=== PATIENT | female | born 1945 | race Caucasian/White ===

== ENCOUNTER 2021-01-16 00:08 | Day surgery (SDC) | payer MEDICARE, OTHER, SELFPAY ==
[2020-12-03 14:36] VITALS: BMI 30.1
[2021-01-16 08:54] VITALS: BP 104/88; PULSE 83; RESP 18; TEMP 36.3; O2SAT 93; BMI 30.2
[2021-01-16] MEDS: LACTATED RINGERS 1,000 ML 150 ML IV CONT (09:05)
--- NOTE | 2021-01-16 09:15 | WPDANESEPPF ---
Anes - Initial Pre Proc Eval Procedure: Operation Date: 01/16/21 09:30 Proposed Procedures p Screening Colonoscopy - Wiliam Montana MD Date/Time: 01/16/21 09:15 Surgeon: Wiliam Montana MD Pre Op Diagnosis: hx of colon polyps Patient Data Age: 75 Gender: F Height: 1.6 m Weight: 77.3 kg Last Vital Signs Temp 97.3 F L 01/16/21 08:54 Pulse 83 01/16/21 08:54 Resp 18 01/16/21 08:54 BP 104/88 01/16/21 08:54 Pulse Ox 93 01/16/21 08:54 Allergies Allergy/AdvReac Type Severity Reaction Status Date / Time amoxicillin Allergy Unknown Rash Verified 01/16/21 08:53 codeine Allergy Unknown Nausea and Verified 01/16/21 08:53 Vomiting Penicillins Allergy Unknown Rash Verified 01/16/21 08:53 Sulfa (Sulfonamide Allergy Unknown RASH Verified 01/16/21 08:53 Antibiotics) morphine AdvReac Unknown Nausea and Verified 01/16/21 08:53 Vomiting Home Medications Medication Instructions Recorded Confirmed Type amitriptyline 50 mg tablet 50 mg PO ONCE 02/28/20 01/13/21 History atorvastatin 10 mg tablet 10 mg PO DAILY 02/28/20 01/13/21 History cholecalciferol (vitamin D3) 125 125 mcg PO DAILY 02/28/20 01/13/21 History mcg (5,000 unit) capsule mecobalamin (vitamin B12) 1,000 1,000 mcg SUBLINGUAL DAILY 02/28/20 01/13/21 History mcg disintegrating tablet,sublingual pantoprazole 20 mg tablet,delayed 20 mg PO BID 02/28/20 01/13/21 History release ropinirole 0.5 mg tablet 0.5 mg PO BID 02/28/20 01/13/21 History Patient hx anesthesia problems: none Family hx anesthesia problems: none PMFSH Past Medical History Medical History (Updated 10/23/20 @ 14:15 by Wiliam Montana MD) Diverticulosis Dysphagia Family history of colon cancer in mother Family history of malignant neoplasm of colon History of colon polyps Hypercholesteremia Social History Social History Smoking status: Never smoker Substance use: never Living arrangements: with family Gender identity (if verbalized by the patient): Female Spiritual care concerns: No Anes - Eval Final PreProcedure Day of Procedure 01/16/21 09:15 Patient weight: obese Heart: regular rate and rhythm Lungs: clear to auscultation Airway: Mallampati scale class II Neurological: alert and oriented Last oral intake: >/= 8 hours ASA classification: III Emergent: no Anesthetic plan: proceed Anesthesia type and monitoring: general GIVS and standard monitoring Informed Consent: The patient's anesthetic plan and its attendant risks and benefits were discussed with the patient/family/POA. Questions were solicited and answers provided to the satisfaction of the patient/family/POA.
--- NOTE | 2021-01-16 09:25 | PM.HPGS ---
History of Present Illness History of Present Illness Consent: Risks, benefits, and alternatives have been discussed and questions answered. Patient agrees to proceed with procedure. Chief complaint: hx of colon polyps Narrative: Aleja Diaz is a 75 year old female with colon polyps and mother had colon cancer Review of Systems Constitutional: Constitutional: Denies headache(s) and Denies weakness Eyes: Eyes: Denies blurry vision ENT: Reports Normal hearing present, Denies headache(s) and Denies neck pain Cardiovascular: Cardiovascular: Denies chest pain and Denies dyspnea Respiratory: Respiratory: Denies dyspnea Gastrointestinal: Gastrointestinal: Reports no additional gastrointestinal complaints Genitourinary: Genitourinary: Denies dysuria Musculoskeletal: Musculoskeletal: Denies neck pain Integumentary/Breasts: Skin/Breast: Denies dry skin Neurologic: Reports Normal hearing present, Denies headache(s) and Denies weakness Psychiatric: Psychiatric: Denies anxiety Endocrine: Endocrine: Denies change in body appearance Hematologic/Lymphatic: Hematologic/Lymphatic: Denies easy bleeding Allergic/Immunologic: Allergic/Immunologic: Denies urticaria PMFSH Past Medical History Medical History (Updated 10/23/20 @ 14:15 by Wiliam Montana MD) Diverticulosis Dysphagia Family history of colon cancer in mother Family history of malignant neoplasm of colon History of colon polyps Hypercholesteremia Social History Social History Smoking status: Never smoker Substance use: never Living arrangements: with family Gender identity (if verbalized by the patient): Female Spiritual care concerns: No Meds Home Medications and Allergies Home Medications Medication Instructions Recorded Confirmed Type amitriptyline 50 mg tablet 50 mg PO ONCE 02/28/20 01/13/21 History atorvastatin 10 mg tablet 10 mg PO DAILY 02/28/20 01/13/21 History cholecalciferol (vitamin D3) 125 125 mcg PO DAILY 02/28/20 01/13/21 History mcg (5,000 unit) capsule mecobalamin (vitamin B12) 1,000 1,000 mcg SUBLINGUAL DAILY 02/28/20 01/13/21 History mcg disintegrating tablet,sublingual pantoprazole 20 mg tablet,delayed 20 mg PO BID 02/28/20 01/13/21 History release ropinirole 0.5 mg tablet 0.5 mg PO BID 02/28/20 01/13/21 History Allergies Allergy/AdvReac Type Severity Reaction Status Date / Time amoxicillin Allergy Unknown Rash Verified 01/16/21 08:53 codeine Allergy Unknown Nausea and Verified 01/16/21 08:53 Vomiting Penicillins Allergy Unknown Rash Verified 01/16/21 08:53 Sulfa (Sulfonamide Allergy Unknown RASH Verified 01/16/21 08:53 Antibiotics) morphine AdvReac Unknown Nausea and Verified 01/16/21 08:53 Vomiting Vital Signs Vital Signs - 24 hr 01/16/21 08:54 Temperature 97.3 F L Pulse Rate 83 Respiratory Rate 18 Blood Pressure 104/88 Pulse Oximetry 93 Exam Const: General: comfortable and no acute distress HENMT: General nose exam: Normal nares present Eyes: General: appearance normal, both eyes and all related structures Neck: Neck: no JVD Resp: Auscultation: clear to auscultation bilaterally Cardio: Rate: regular rate Rhythm: regular rhythm GI: Inspection: non-distended GI Palp: Yes Soft to palpation Skin: General skin exam: normal color Neuro: General: gait normal Speech: normal speech Extrem: General: normal to inspection Psych: Mental Status: mental status grossly normal Assessment and Plan Assessment and plan (1) Family history of colon cancer in mother: Code(s): Z80.0 - Family history of malignant neoplasm of digestive organs Status: Acute Assessment and Plan: colonoscopy (2) History of colon polyps: Code(s): Z86.010 - Personal history of colonic polyps Status: Acute
[2021-01-16 09:48] VITALS: BP 91/58; PULSE 69; RESP 13; O2SAT 95
[2021-01-16 09:58] VITALS: BP 91/58; PULSE 66; RESP 17; O2SAT 96
[2021-01-16 10:08] VITALS: BP 91/58; PULSE 68; RESP 18; O2SAT 96
== END 2021-01-16 10:35 | disposition home or self-care (01) ==
PROVIDERS: PCP Family Medicine; Visit Provider Internal Medicine Gastroenterology
PROC: 0DJD8ZZ Inspection of Lower Intestinal Tract, Via Natural or Artificial Opening Endoscopic (ICD-10-PCS; CPT 45378; principal; 2021-01-16 09:30)
DX: Z12.11 Encounter for screening for malignant neoplasm of colon (principal); D12.3 Benign neoplasm of transverse colon; Z80.0 Family history of malignant neoplasm of digestive organs; K57.30 Diverticulosis of large intestine without perforation or abscess without bleeding; K64.8 Other hemorrhoids; D17.9 Benign lipomatous neoplasm, unspecified; E78.00 Pure hypercholesterolemia, unspecified
CPT/HCPCS: 45380; 88305; J2001; J2704; J7120

== ENCOUNTER 2023-07-22 13:16 | Emergency (ER) | payer MEDICARE, OTHER, SELFPAY ==
--- NOTE | ~2023-07-22 | XR_ITS ---
EXAMINATION: XR chest 2V DATE: 07/22/2023 13:53 INDICATION: Cough. TECHNIQUE: Frontal and lateral views of the chest were obtained. COMPARISON: Chest 2 views 03/18/2019, chest CT 03/18/2019 FINDINGS: There is mild atelectasis at the lung bases. No pleural effusion or pneumothorax. The heart size is normal. There is an electronic implant in left anterior chest wall. IMPRESSION: 1. Mild atelectasis at the lung bases. Reviewed, dictated and finalized at location A. [facility]
[2023-07-22 13:29] VITALS: BP 106/80; PULSE 83; RESP 16; TEMP 36.9; O2SAT 94
--- NOTE | 2023-07-22 13:56 | ED.URI ---
HPI - URI/Sore Throat General Chief Complaint: Upper Respiratory Infection Stated Complaint: COUGH Source: patient Mode of arrival: ambulatory Limitations: no limitations History of Present Illness HPI Narrative: 78-year-old female presents to [facility] for complaint of a nonproductive cough And postnasal drainage for 2 weeks. Patient endorses that she has treated at home with coricidin and Tessalon Perles with some relief. patient patient denies fever, chest pain, shortness. Patient endorses history TIA, high cholesterol, pain syndrome, anxiety, depression, GERD. Patient endorses allergy to penicillin, amoxicillin, sulfa, codeine, and morphine. patient endorses nausea and vomiting x1 this morning and reports that it is primarily clear phlegm. Patient able to tolerate fluids by mouth. Related Data Home Medications Medication Instructions Recorded Confirmed amitriptyline 50 mg tablet 50 mg PO ONCE 02/28/20 01/13/21 atorvastatin 10 mg tablet 10 mg PO DAILY 02/28/20 01/13/21 cholecalciferol (vitamin D3) 125 125 mcg PO DAILY 02/28/20 01/13/21 mcg (5,000 unit) capsule mecobalamin (vitamin B12) 1,000 1,000 mcg sublingual DAILY 02/28/20 01/13/21 mcg disintegrating tablet,sublingual pantoprazole 20 mg tablet,delayed 20 mg PO BID 02/28/20 01/13/21 release ropinirole 0.5 mg tablet 0.5 mg PO BID 02/28/20 01/13/21 Allergies Allergy/AdvReac Type Severity Reaction Status Date / Time amoxicillin Allergy Unknown Rash Verified 01/16/21 08:53 codeine Allergy Unknown Nausea and Verified 01/16/21 08:53 Vomiting Penicillins Allergy Unknown Rash Verified 01/16/21 08:53 Sulfa (Sulfonamide Allergy Unknown RASH Verified 01/16/21 08:53 Antibiotics) morphine AdvReac Unknown Nausea and Verified 01/16/21 08:53 Vomiting Review of Systems Review of Systems: All systems reviewed & are unremarkable except as noted in HPI and below Constitutional: Constitutional: Reports no additional constitutional complaints, Denies body ache(s), Denies chills and Denies fever(s) Eyes: Eyes: Reports no additional eye complaints ENT: Reports system reviewed and no additional complaints, except as documented and Reports as per HPI Cardiovascular: Cardiovascular: Reports no additional cardiovascular complaints, Denies chest pain and Denies dyspnea Respiratory: Respiratory: Reports cough, Denies excessive phlegm production, Reports pain with cough ( Intermittent) and Denies dyspnea Musculoskeletal: Musculoskeletal: Reports no additional musculoskeletal complaints Neurologic: Reports system reviewed and no additional complaints, except as documented Psychiatric: Psychiatric: Reports no additional psychiatric complaints PMFSH Past Medical History Medical History (Updated 07/22/23 @ 14:56 by Tania Betts APRN) Diverticulosis Dysphagia Family history of colon cancer in mother Family history of malignant neoplasm of colon History of colon polyps Hypercholesteremia Social History Social History Smoking status: Never smoker Substance use: never Living arrangements: with family Gender identity (if verbalized by the patient): Female Spiritual care concerns: No Comments At the time of my signature, I reviewed and agree with the nursing past medical, surgical, social, and family history. There is no relevant family history pertinent to the patient complaint. Exam Const: General: cooperative, healthy appearing, comfortable, no acute distress, alert and well nourished Nutritional Appearance: well nourished Orientation/consciousness: patient oriented x3 Limitations: no limitations HENMT: Head: normal to inspection Ears: external ears normal Face/Nose/Sinus: Normal external nose present, Normal nares present, normal facial exam, No erythema and No edema Face and sinus: normal facial exam, no erythema and no edema Mouth: Yes Normal oral and palatal muc
== END 2023-07-22 15:02 | disposition home or self-care (01) ==
PROVIDERS: Emergency Provider Nurse Practitioner Family; PCP Family Medicine
DX: J98.11 Atelectasis (principal); J06.9 Acute upper respiratory infection, unspecified; J40 Bronchitis, not specified as acute or chronic; E78.00 Pure hypercholesterolemia, unspecified; F32.A Depression, unspecified; K21.9 Gastro-esophageal reflux disease without esophagitis; Z86.73 Personal history of transient ischemic attack (TIA), and cerebral infarction without residual deficits
CPT/HCPCS: 71046; 99213; G0463

== ENCOUNTER 2024-01-03 09:52 | Emergency (ER) | payer MEDICARE, OTHER, SELFPAY ==
[2024-01-03 10:00] VITALS: BP 144/90; PULSE 75; RESP 16; TEMP 36.6; O2SAT 95
--- NOTE | 2024-01-03 10:06 | ED.URI ---
HPI - URI/Sore Throat General Chief Complaint: Upper Respiratory Infection Stated Complaint: Cold Symptoms Time Seen by Provider: 01/03/24 10:06 Source: patient, RN notes reviewed and old records reviewed Mode of arrival: ambulatory Limitations: no limitations History of Present Illness HPI Narrative: 78-[facility] complaint of cough, Sinus congestion, bilateral ear discomfort, intermittent vomiting for 3 days. Patient also endorsing urinary frequency and burning with urination for 2 days. Patient reports taking Coricidin at home with some relief. Patient endorses allergy to amoxicillin, codeine, penicillin, sulfa, morphine. Patient denies chest pain, shortness of breath, abdominal pain, diarrhea, sore throat, headache, dizziness. Patient able to tolerate fluids by mouth. Patient resting uncomfortably in exam room, appears fatigued and acutely ill. Respirations even and nonlabored. Patient able to speak in full sentences without difficulty. Patient in no acute distress. Related Data Home Medications Medication Instructions Recorded Confirmed amitriptyline 50 mg tablet 50 mg PO ONCE 02/28/20 01/03/24 atorvastatin 10 mg tablet 10 mg PO DAILY 02/28/20 01/03/24 cholecalciferol (vitamin D3) 125 125 mcg PO DAILY 02/28/20 01/03/24 mcg (5,000 unit) capsule mecobalamin (vitamin B12) 1,000 1,000 mcg sublingual DAILY 02/28/20 01/03/24 mcg disintegrating tablet,sublingual pantoprazole 20 mg tablet,delayed 20 mg PO BID 02/28/20 01/03/24 release ropinirole 0.5 mg tablet 0.5 mg PO BID 02/28/20 01/03/24 Allergies Allergy/AdvReac Type Severity Reaction Status Date / Time amoxicillin Allergy Unknown Rash Verified 01/03/24 10:09 codeine Allergy Unknown Nausea and Verified 01/03/24 10:09 Vomiting Penicillins Allergy Unknown Rash Verified 01/03/24 10:09 Sulfa (Sulfonamide Allergy Unknown RASH Verified 01/03/24 10:09 Antibiotics) morphine AdvReac Unknown Nausea and Verified 01/03/24 10:09 Vomiting Review of Systems Review of Systems: All systems reviewed & are unremarkable except as noted in HPI and below Constitutional: Constitutional: Reports as per HPI and Reports fatigue Eyes: Eyes: Reports no additional eye complaints ENT: Reports as per HPI, Reports otalgia ( bilateral pressure) and Reports nasal congestion Cardiovascular: Cardiovascular: Reports no additional cardiovascular complaints, Denies chest pain and Denies dyspnea Respiratory: Respiratory: Reports no additional respiratory complaints, Reports cough and Denies dyspnea Gastrointestinal: Gastrointestinal: Reports as per HPI, Denies abdominal pain, Denies diarrhea, Denies nausea and Denies vomiting Genitourinary: Genitourinary: Reports as per HPI, Denies hematuria, Reports nocturia and Reports dysuria Musculoskeletal: Musculoskeletal: Reports no additional musculoskeletal complaints Neurologic: Reports system reviewed and no additional complaints, except as documented Psychiatric: Psychiatric: Reports no additional psychiatric complaints [facility] Past Medical History Medical History Diverticulosis Dysphagia Family history of colon cancer in mother Family history of malignant neoplasm of colon History of colon polyps Hypercholesteremia Social History Social History Smoking status: Never smoker Substance use: never Living arrangements: with family Gender identity (if verbalized by the patient): Female Spiritual care concerns: No Comments At the time of my signature, I reviewed and agree with the nursing past medical, surgical, social, and family history. There is no relevant family history pertinent to the patient complaint. Exam Const: General: cooperative, no acute distress, well developed, alert, ill appearing acutely, tired appearing, uncomfortable, well groomed and well devon
--- NOTE | 2024-01-03 10:28 | PC.NURSE ---
1027- provider in telling her results of poc tests, and giving her discharge instructions, and pt also mentions that now she would like to be tested for UTI, since she is having some burning with urination x 1 day. pt given specimen cup and instructions for giving a specimen.
[2024-01-03 10:30] LABS: EDINFLUASCREEN Negative; EDINFLUBSCREEN Negative; EDSTREPNEGPOS1 Presumptive Negative
[2024-01-03 10:40] LABS: EDUAAPPEAR Cloudy; EDUABILI Negative; EDUABLOOD Trace; EDUACOLOR1 Yellow; EDUAGLUCOSE Negative; EDUAKETONE Negative; EDUALEUKO 2+; EDUANITRATE Positive; EDUAPH 5.5; EDUAPROTEIN Negative; EDUASPGRAVITY 1.015; EDUAUROBILI 0.2
== END 2024-01-03 10:48 | disposition home or self-care (01) ==
PROVIDERS: Emergency Provider Nurse Practitioner Family
DX: U07.1 COVID-19 (principal); N39.0 Urinary tract infection, site not specified; E78.00 Pure hypercholesterolemia, unspecified
CPT/HCPCS: 81003; 87077; 87081; 87086; 87088; 87186; 87426; 87804; 87880; 99213; G0463

== ENCOUNTER 2024-02-28 14:31 | Emergency (ER) | payer MEDICARE, OTHER, SELFPAY ==
[2024-02-28 14:43] VITALS: BP 144/75; PULSE 83; RESP 16; TEMP 36.4; O2SAT 97
--- NOTE | 2024-02-28 15:00 | ED.SKABFB ---
HPI - Skin/Abscess/Foreign Bdy General Chief complaint: Skin/Abscess/Foreign Body Stated complaint: rash on back,lt eye irritation Time Seen by Provider: 02/28/24 14:58 Source: patient, family, RN notes reviewed and old records reviewed Mode of arrival: ambulatory Limitations: no limitations History of Present Illness HPI narrative: 78 year old female who presents to [facility] with significant other with complaints of red raised rash to lower right side of lower back with some pustules noted for 2 day duration. Patient states area burning and itching concerned for possible shingles which she states she has had in past. lesions do not cross midline. Patient also reports 3 day duration of left eye redness, itching, and watery with some mucoid drainage noted in mornings. Patient has minimal swelling to eyelid no lesions or redness around left eye. Patient denies any acute pain to her left eye or any changes in vision. Patient reports that she had COVID one month ago, denies any history of kidney disease. MD complaint: rash and other (left eye irritation and mucoid drainage) Onset (ago): day(s) (2 days rash 3 days eye irritation) Location: back (right lower back) Severity: moderate Quality: burning (rash, itching to left eye watering) Treatments prior to arrival: none Related Data Home Medications Medication Instructions Recorded Confirmed amitriptyline 50 mg tablet 50 mg PO ONCE 02/28/20 01/03/24 atorvastatin 10 mg tablet 10 mg PO DAILY 02/28/20 01/03/24 cholecalciferol (vitamin D3) 125 125 mcg PO DAILY 02/28/20 01/03/24 mcg (5,000 unit) capsule mecobalamin (vitamin B12) 1,000 1,000 mcg sublingual DAILY 02/28/20 01/03/24 mcg disintegrating tablet,sublingual pantoprazole 20 mg tablet,delayed 20 mg PO BID 02/28/20 01/03/24 release ropinirole 0.5 mg tablet 0.5 mg PO BID 02/28/20 01/03/24 Allergies Allergy/AdvReac Type Severity Reaction Status Date / Time amoxicillin Allergy Unknown Rash Verified 01/03/24 10:09 codeine Allergy Unknown Nausea and Verified 01/03/24 10:09 Vomiting Penicillins Allergy Unknown Rash Verified 01/03/24 10:09 Sulfa (Sulfonamide Allergy Unknown RASH Verified 01/03/24 10:09 Antibiotics) morphine AdvReac Unknown Nausea and Verified 01/03/24 10:09 Vomiting Review of Systems Review of Systems: CONSTITUTIONAL: Denies fever, chills, or sweats. EYES: Denies visual changes. Reports redness,, irritation, discharge and increased watering to her left eye and itching ENT: Denies rhinorrhea, congestion, sore throat, or otalgia. CARDIOVASCULAR: Denies chest pain, palpitations, or edema. RESPIRATORY: Denies cough or dyspnea. SKIN: Reports red raised rash to lower right back with pustule formation that is burning NEUROLOGIC: Denies headache PMFSH Past Medical History Medical History CVA (cerebral vascular accident) 2019 no residual Diverticulosis Dysphagia Esophageal dilatation 2019 Family history of colon cancer in mother Family history of malignant neoplasm of colon History of colon polyps Hypercholesteremia Hypertension Surgical History Surgical History Hx of appendectomy Social History Social History Smoking status: Never smoker Substance use: never Living arrangements: with family Gender identity (if verbalized by the patient): Female Spiritual care concerns: No Comments At time of signature, agree with nursing past medical, surgical, social and family history. There is no relevant family history pertinent to the presenting complaint Exam Narrative: GENERAL: Well-appearing, well-nourished, and in no acute distress. HEAD: Normocephalic, atraumatic. EYES: PERRLA and EOMI. Upper eye lid left eye mild swelling and lower eyelid unremarkable. No periorbital cellulitis noted. Sclera and conj
== END 2024-02-28 15:16 | disposition home or self-care (01) ==
PROVIDERS: Emergency Provider Registered Nurse; PCP Family Medicine
DX: B02.9 Zoster without complications (principal); H10.9 Unspecified conjunctivitis; E78.00 Pure hypercholesterolemia, unspecified; I10 Essential (primary) hypertension; Z86.73 Personal history of transient ischemic attack (TIA), and cerebral infarction without residual deficits; Z86.16 Personal history of COVID-19
CPT/HCPCS: 99213; G0463

== ENCOUNTER 2024-03-20 12:14 | Outpatient (CLI) | payer MEDICARE, OTHER, SELFPAY ==
--- NOTE | ~2024-03-20 | US_ITS ---
EXAMINATION: US carotid duplex BI DATE: 03/20/2024 13:14 INDICATION: Carotid atherosclerosis and stenosis TECHNIQUE: Grayscale, color Doppler, and pulsed Doppler images of the cervical carotid arteries were obtained. The degree of vessel stenosis is placed in one of the following categories: normal, <50%, 5 0-69%, >=70% but less than near-occlusion, near-occlusion, or total occlusion. Note that percent sten osis relative to normal distal artery lumen diameter is indirectly measured from velocity measurement s as described by Jerad, et al. Radiology 2003; 229:340-346. COMPARISON: 03/18/2019 FINDINGS: RIGHT: The right common carotid artery (CCA) peak systolic velocity (PSV) is 87 cm/s. The right internal car otid artery (ICA) PSV is 60 cm/s. The right ICA end-diastolic velocity (EDV) is 18 cm/s. The right IC A/CCA PSV ratio is 0.7. Grayscale and color Doppler images yield an estimate of <50% diameter reducti on from plaque in the ICA. The external carotid artery (ECA) PSV is 73 cm/s. There is antegrade flow in the right vertebral artery. LEFT: The left CCA PSV is 83 cm/s. The left ICA PSV is 82 cm/s. The left ICA EDV is 22 cm/s. The left ICA/C CA PSV ratio is 1.0. Grayscale and color Doppler images yield an estimate of <50% diameter reduction from plaque in the ICA. The ECA PSV is 82 cm/s. There is antegrade flow in the left vertebral artery. IMPRESSION: 1. <50% stenosis in the right internal carotid artery. 2. <50% stenosis in the left internal carotid artery. Reviewed, dictated and finalized at location A.
--- NOTE | ~2024-03-20 | US_ITS ---
EXAMINATION: US soft tissue head and neck DATE: 03/20/2024 13:13 INDICATION: Localized palpable lump at the right neck TECHNIQUE: Multiple grayscale and Doppler ultrasound images of the region of concern at the and supra clavicular right neck were obtained. COMPARISON: None FINDINGS: The palpable abnormality of concern corresponds to the relatively superficial bifurcation of the inno minate artery into the right subclavian artery and tortuous right common carotid artery. No other abn ormal masses, pathologically enlarged lymph nodes or fluid collections identified. Visualized portion of the right internal jugular vein and right lobe of the thyroid are unremarkable. IMPRESSION: 1. Palpable abnormality of concern corresponds to the relatively superficial bifurcation of the innom inate artery to the right subclavian artery and tortuous right common carotid artery. Reviewed, dictated and finalized at location A. IMPRESSION: 1. Palpable abnormality of concern corresponds to the relatively superficial bi furcation of the innominate artery to the right subclavian artery and tortuous right common carotid artery.
--- NOTE | 2024-03-20 12:21 | ECHO_ITS ---
Patient Info Name: Aleja Diaz Age: 78 years : 1945 Gender: Female Ht: 64 in Wt: 188 lbs BSA: 1.99 m2 HR: 76 bpm BP: 142 / 85 mmHg Heart Rhythm: Sinus Rhythm Technical Quality: Fair Exam Date: 03/20/2024 1:11 PM Exam Location: Echo Lab Patient Status: Outpatient Admit Date: 03/20/2024 Staff Ordering Physician: Sarabjit Ferrera DO Configuration Management Manager: Hali Urrutia RDCS Attending Provider: Sarabjit Ferrera DO Referring Physician: Iban PRESLEY; Exam Type: CA echo doppler color flow Study Info Indications R01.1 - Cardiac murmur, unspecified Complete two-dimensional, color flow and Doppler transthoracic echocardiogram is performed. Summary 1. Complete two-dimensional, color flow and Doppler transthoracic echocardiogram is performed. 2. Left ventricular chamber dimension is normal. 3. Left ventricular systolic function is normal, estimated at 60-65%. 4. The left ventricular diastolic function is grade I diastolic dysfunction. 5. E/e' 10 is mildly elevated. 6. There is mild aortic valve sclerosis. 7. There is trace aortic valve regurgitation. 8. No pulmonary hypertension, estimated pulmonary arterial systolic pressure is 29 mmHg. 9. Small atheroma in anterior aortic root. Left Ventricle E/e' 10 is mildly elevated. Left ventricular chamber dimension is normal. Left ventricular systolic function is normal, estimated at 60-65%. The left ventricular diastolic function is grade I diastolic dysfunction. Right Ventricle Right ventricular systolic function is normal and with normal TAPSE 2.0 cm. Right ventricular chamber dimension is normal. Left Atria Left atrial chamber dimension is normal. Right Atria Right atrial chamber dimension is normal. Aortic Valve The aortic valve is trileaflet. There is mild aortic valve sclerosis. There is no aortic valve stenosis. There is trace aortic valve regurgitation. Pulmonic Valve There is no pulmonic regurgitation. Mitral Valve There is no mitral valve stenosis. There is no mitral valve regurgitation. Tricuspid Valve There is no tricuspid valve regurgitation. No pulmonary hypertension, estimated pulmonary arterial systolic pressure is 29 mmHg. Pericardium/Pleural There is no pericardial effusion. Inferior Vena Cava Normal inferior vena cava with >50% collapse upon inspiration consistent with normal right atrial pressure, 5 mmHg. Aorta Small atheroma in anterior aortic root. The aortic root size at the sinus of Valsalva is normal. Left Ventricular Outflow Tract Name Value Normal LVOT 2D LVOT Diameter 2.0 cm LVOT Doppler LVOT Peak Gradient 5 mmHg LVOT Mean Gradient 3 mmHg LVOT VTI 26 cm LVOT VTI/AV VTI Ratio 0.9 LVOT Stroke Volume 81 ml Pulmonic Valve Name Value Normal PV Doppler PV Peak Gradient 3 mmHg Mitral Valve Name Value Normal MV Doppler MV Decel Fallon 348 cm/s2 MV PHT 60 ms MV Area (PHT) 3.7 cm2 4.0-5.0 MV Diastolic Function MV E Peak Velocity 72 cm/s MV A Peak Velocity 107 cm/s MV E/A 0.7 MV Decel Time 207 ms MV Annular TDI MV E/e' (Septal) 11.0 <=8.0 MV E/e' (Lateral) 10.2 <=8.0 MV E/e' (Average) 10.6 Tricuspid Valve Name Value Normal TV Regurgitation Doppler TR Peak Velocity 247 cm/s TR Peak Gradient 24 mmHg Estimated PAP/RSVP RA Pressure 5 mmHg <=5 PA Systolic Pressure 29 mmHg <36 RV Systolic Pressure 29 mmHg <36 Aorta Name Value Normal Ascending Aorta Ao Root Diameter (MM) 3.1 cm Ao Root Diam Index (MM) 1.6 cm/m2 Aortic Valve Name Value Normal AV Doppler AV Peak Velocity 187 cm/s AV Peak Gradient 14 mmHg AV Mean Gradient 6 mmHg AV VTI 30 cm AV Area (Cont Eq VTI) 2.7 cm2 >=3.0 AV Area (Cont Eq Tony) 1.9 cm2 AV Regurgitation 2D LVOT Area 3.1 cm2 AV Regurgitation Doppler AR Decel Time 1,638 ms AR Decel Fallon 175 cm/s2 AR PHT 475 ms Ventricles Name Value Normal LV Dimensions 2D/MM IVS Diastolic Thickness (2D) 1.1 cm 0.6-1.0 LVID Diastole (2D) 4.2 cm 3.8-5.2 LVIW Diastolic Thickness (2D) 1.1 cm 0.6-0.9 LVID Systole (2D) 2.5 cm 2.2-3.5 LVOT Diameter 2.0 cm LV Mass (2D Cubed) 154.62 g 67.00-162.00 LV Mass Index (2D Cubed) 78 g/m2 43-95 Relative Wall Thickness (2D) 0.54 LV Fractional Shortening/Ejection Fraction 2D/MM LV Fractional Shortening (2D) 40 % 27-45 LV EF (2D Teicholz) 71 % 54-74 LV Diastolic Volume (4C MOD) 46 ml LV EF (4C MOD) 60 % LV Diastolic Volume (2C MOD) 28 ml LV EF (2C MOD) 68 % LV Diastolic Volume (BP MOD) 39 ml 46-106 LV Diastolic Volume Index (BP MOD) 19 ml/m2 29-61 LV Systolic Volume (BP MOD) 13 ml 14-42 LV Systolic Volume Index (BP MOD) 7 ml/m2 8-24 LV EF (BP MOD) 65 % 54-74 LV Diastolic Length (4C) 7.7 cm LV Systolic Length (4C) 6.1 cm LV Stroke Volume (4C MOD) 28 ml Atria Name Value Normal LA Dimensions LA Dimension (MM) 3.6 cm 2.7-3.8 LA Volume (4C A-L) 37 ml LA Volume (BP A-L) 35 ml RA Dimensions RA Area (4C) 10.8 cm2 <=18.0 Report Signatures
== END 2024-03-20 12:15 | disposition home or self-care (01) ==
LOC: ANHIMG 12:15
PROVIDERS: PCP Family Medicine; Visit Provider Internal Medicine Cardiovascular Disease
DX: I65.23 Occlusion and stenosis of bilateral carotid arteries (principal); R01.1 Cardiac murmur, unspecified; I35.8 Other nonrheumatic aortic valve disorders
CPT/HCPCS: 76536; 93306; 93880

== ENCOUNTER 2024-11-07 09:20 | Emergency (ER) | payer MEDICARE, OTHER, SELFPAY ==
[2024-11-07] VITALS (14 sets, daily range): BP systolic 118–150; BP diastolic 66–92; PULSE 94–107; RESP 16–26; TEMP 38.5–39.2; O2SAT 92–100
--- NOTE | ~2024-11-07 | XR_ITS ---
XR chest 2V Ordering provider: Davon Ribera MD History: 79 years Female with . dizzy, pt STATES FEELING COLD x1HR . Comparison: July 22, 2023 FINDINGS: MEDIASTINUM: The cardiac silhouette is not enlarged. Congestive basil. Device projected over the heart . LUNGS: No effusions or pneumothorax. Bilateral interstitial thickening suggestive of pneumonitis vers us pulmonary edema. OTHER: No free air under the diaphragm. Degenerative changes of the spine with levoscoliosis. IMPRESSION: Bilateral interstitial thickening which may indicate pulmonary edema versus pneumonitis. Clinical cor relation advised. Reviewed, dictated and finalized at location A. IMPRESSION: Bilateral interstitial thickening which may indicate pulmonary edema versus pne umonitis. Clinical correlation advised.
--- OUTSIDE RECORDS SUMMARY | 2024-11-07 10:07 | XMS_ITS | Encounter Summary ---
Author Organization [facility] Healthcare Address [address] [place] [address] Care Team Providers Care Double Bass Player Name Role Phone No, Physician Primary Care Provider [phone] Juma Miranda MD Primary Care Provider [phone] Encounter Details Date Type Department Care Team (Late st Contact Info) Description 03/20/2024 Orders Only [facility] Medical [facility] [address] [place] [id number] Scanning, Provider Social History Tobacco Use Types Packs/Day Years Used Date Smoking Tobacco: Never Comments Unknown Sex and Gender Information Value Date Recorded Sex Assigned at Not on file Legal Sex Female 7:50 AM CDT Gender Identity Not on file Sexual Orientation Not on file documented as of this encounter Plan of Treatment Not on file documented as of this encounter Procedures Procedure Name Priority Date/Time Associated Diagnosis Comments SCAN - RADIOLOGY/IMAGING 03/20/2024 documented in this encounter Results * SCAN - RADIOLOGY/IMAGING (03/20/2024) Anatomical Region Laterality Modality Other us Provider Scanning Final Result documented in this encounter Visit Diagnoses Not on filedocumented in this encounter Care Teams Double Bass Player Relationship Specialty Start Date End Date No, Physician PCP - General 03/18/19 09/10/24 [place] [address] [place] [address] PCP - General Family Medicine 09/11/24 documented as of this encounter
--- OUTSIDE RECORDS SUMMARY | 2024-11-07 10:07 | XMS_ITS | Referral Summary ---
Author Organization [facility] [address] Address [address] [place] [address] Care Team Providers Care Phosphatic Fertilizer Supervisor Name Role Phone Juma Miranda MD Primary Care Provider [phone] Encounters Date Type Department Care Team Description 09/11/2024 12:30 PM CDT Office Visit [facility] [address] [address] Fabian Sebastian NP Blepharitis of left upper eyelid, unspecified type (Primary Dx); Daytime sleepiness from Last 3 Months Allergies Active Allergy Reactions Criticality Noted Date Comments Codeine Dizziness Low 06/16/2016 Doxycycline Nausea only Low 07/30/2022 Penicillins Rash Medium 06/16/2016 Pravastatin Muscle pain Medium 06/16/2016 Rosuvastatin Muscle pain Medium 06/16/2016 Sertraline Other (See comments) Low 02/21/2019 Body cramping Sulfa (Sulfonamide Antibiotics) Rash,Shortness of breath High 06/16/[address] (PROTONIX) 40 mg EC tablet Take 1 tablet (40 mg total) by mouth daily Active rOPINIRole (REQUIP) 0.5 mg tablet 01/01/2021 Active atorvastatin (LIPITOR) 10 mg tablet 12/03/2020 Active amitriptyline (ELAVIL) 50 mg tablet 02/14/[address] (PROTONIX) 20 mg EC tablet Take 1 tablet (20 mg total) by mouth 2 (two) times a day 03/31/2022 Active benzonatate (TESSALON) 100 mg capsuleIndicatio ns:Cough Take 1 capsule (100 mg total) by mouth 3 (three) times a day as needed for cough 42 capsule 01/08/2024 Active nitrofurantoin monohydrate (MACROBID) 100 mg capsule 01/03/2024 Active amitriptyline (ELAVIL) 75 mg tablet 01/06/2024 Active predniSONE (DELTASONE) 20 mg tablet 01/03/2024 Active Active Problems No known active problems Social History Tobacco Use Types Packs/Day Years Used Date Smoking Tobacco: Never Tobacco Cessation:Counseling Given: Not Answered Comments Unknown Sex and Gender Information Value Date Recorded Sex Assigned at Not on file Legal Sex Female 7:50 AM CDT Gender Identity Not on file Sexual Orientation Not on file Last Filed Vital Signs Vital Sign Reading Time Taken Comments Blood Pressure 130/78 09/11/2024 12:16 PM CDT Pulse 84 09/11/2024 12:16 PM CDT Temperature 36.5 C (97.7 F) 09/11/2024 12:16 PM CDT Respiratory Rate 20 09/11/2024 12:16 PM CDT Oxygen Saturation 94% 09/11/2024 12:16 PM CDT Inhaled Oxygen Concentration - - Weight 84.4 kg (186 lb) 09/11/2024 12:16 PM CDT Height 161.3 cm (5' 3.5) 01/12/2024 4:22 PM CDT Body Mass Index 32.43 01/12/2024 4:22 PM CDT Plan of Treatment Not on file Insurance MEDICARE [facility] Address: [id number] [place] [address] [facility] [place] [employer] [place] [employer] Care Teams Phosphatic Fertilizer Supervisor Relationship Specialty [place] [id number] [address] PCP - General Family Medicine 09/11/24
--- OUTSIDE RECORDS SUMMARY | 2024-11-07 10:07 | XMS_ITS | Clinical Summary ---
Author Organization [facility] Address [address] [place] [address] Care Team Providers Care Shredding Specialist Name Role Phone Juma Miranda MD Primary Care Provider [phone] Juma Schneider MD Unavailable [phone] Allergies Active Allergy Reactions Criticality Noted Date Comments Ampicillin Rash Low 06/16/2016 Codeine Dizziness 06/16/2016 Doxycycline Nausea Only 07/30/2022 Penicillins Rash Low 06/16/2016 Pravastatin Myalgias 06/16/2016 Rosuvastatin Myalgias 06/16/2016 Sertraline Other (see comment) 02/21/2019 Body cramping Sulfa Antibiotics Shortness of Breath,Rash High 05/24 Medications vitamin D3 5000 UNITS capsule Take 1 tablet by mouth daily. 10/10/2014 Active aspirin EC (ECOTRIN) 81 MG tablet Take 1 tablet (81 mg total) by mouth daily. Active ropinirole 0.25 MG tabletIndicatio ns:take 4 tablets at bedtime if needed Take 1 tablet (0.25 mg total) by mouth nightly. Indications: take 4 tablets at bedtime if needed Active amitriptyline 50 MG tablet Take 1 tablet (50 mg total) by mouth nightly at bedtime. Active pantoprazole EC 40 MG tablet Take 1 tablet (40 mg total) by mouth daily. Active atorvastatin 10 MG tablet Take 1 tablet (10 mg total) by mouth nightly at bedtime. Active vitamin B-12 100 MCG tablet Take 0.5 tablets (50 mcg total) by mouth daily. Active Active Problems Problem Noted Date Diagnosed Date Encounter for loop recorder at end of battery li fe 07/22/2022 Status post placement of implantable loop record er 07/28/2019 Overview (07/28/2019): [facility] confirm ilr -- 07-13-2019 Cryptogenic stroke ([facility]) 04/06/2019 Bilateral carotid artery stenosis 07/20/2018 Other chest pain 01/19/2018 Nonrheumatic aortic valve insufficiency 06/24/19 17 Abnormal laboratory test 06/23/2016 Heart murmur Pulsatile neck mass HLD (hyperlipidemia) Aneurysm of carotid artery IBS (irritable bowel syndrome) Family History Medical History Relation Comments Heart Attack Father NM Father Heart Attack Paternal Grandfather Relation Status Comments Father Maternal Grandfather Maternal Grandmother Mother Paternal Grandfather Paternal Grandmother Sister Social History Tobacco Use Types Packs/Day Years Used Date Smoking Tobacco: Never Smokeless Tobacco: Never Alcohol Use Standard Drinks/Week Comments No 0 (1 standard drink = 0.6 oz pur e alcohol) Comments Unknown Sex and Gender Information Value Date Recorded Sex Assigned at Not on file Legal Sex Female 8:44 PM CDT Gender Identity Not on file Sexual Orientation Not on file Occupation Industry Job Start Date Job End Date retired Not on file Not on file Not on file Last Filed Vital Signs Vital Sign Reading Time Taken Comments Blood Pressure 143/86 07/30/2022 1:00 PM GENETICS NURSE Pulse 76 07/30/2022 1:00 PM GENETICS NURSE Temperature 36 C (96.8 F) 07/30/2022 1:00 PM GENETICS NURSE Respiratory Rate 16 07/30/2022 1:00 PM GENETICS NURSE Oxygen Saturation 97% 07/30/2022 1:00 PM GENETICS NURSE Inhaled Oxygen Concentration - - Weight 84.1 kg (185 lb 6.5 oz) 07/30/2022 1:00 P M GENETICS NURSE Height 161.3 cm (5' 3.5) 07/30/2022 1:00 PM GENETICS NURSE Body Mass Index 32.32 07/30/2022 1:00 PM GENETICS NURSE Plan of Treatment Health Maintenance Due Date Last Done Comments Hepatitis C 1963 DTaP, Tdap and Td Vaccines ( 1 - Tdap) 1964 Zoster Vaccines (1 of 2) 1995 Annual Medicare Wellness Visit 2010 Dexa Scan (General) 2010 Pneumococcal Vaccine: 50+ Ye ars (2 of 2 - PPSV23) 02/15/2018 12/21/2017 RSV Immunization or 60+ Years (1 - 1-dose 75+ series) 2020 COVID-19 Vaccine (1 - 2023-2 5 season) 2024 Meningococcal B Vaccine Aged Out No l onger eligible based on patient's age to complete this topic Meningococcal Vaccine Aged Out No danisha juan eligible based on patient's age to complete this topic RSV Immunizations Under 20 Months Aged Out No longer eligible based on patient's age to complete this topic Medical Devices Implanted Type Area Heavy Duty Custodian Device Identifier Shelf Expiration Date Model / Serial / Lot [employer] Loop Recorder 07/13/2019 Implanted:07/13 by Juma Schneider MD (Quantity not on file) [employer] [facility] [employer] 07/13/2020 [id number] / [id number] / Insurance MEDICARE [employer] Advance Directives Documents on File Type Date Recorded Patient Certified Pest Control Technician Expl anation Advance Directives and Living Will 08/03/2022 3:25 PM 04/29/2020 [place] Advance Directives and Living Will 08/03/2022 2:39 PM POA FOR HEALTH CARE * Full Code (Latest Code Status on File) Date Activated Date Inactivated Comments 07/13/2019 1:03 PM 07/13/2019 3:46 PM Care Teams Shredding Specialist Relationship Specialty Start Date End Date Juma Miranda MD PCP - General FAMILY PRACTICE 07/25/18 Juma Schneider MD [address] [place] [address] EP Press Pipe Inspector CLINICAL CARDIAC ELECTROPHYSIOLOGY 03/23/19
--- OUTSIDE RECORDS SUMMARY | 2024-11-07 10:07 | XMS_ITS | Clinical Summary ---
Author Organization [facility] [address] Address [address] [place] [address] Care Team Providers Care Radiology Director Name Role Phone Juma Miranda MD Primary Care Provider [phone] Allergies Active Allergy Reactions Criticality Noted Date [...] Active Active Problems No known active problems Encounters Date Type Department Care Team Description 09/11/2024 12:30 PM CDT Office Visit [facility] Medical [facility] Care at [address] [address] Fabian Sebastian NP Blepharitis of left upper eyelid, unspecified type (Primary Dx); Daytime sleepiness from Last 3 Months Surgical History Surgery Date Site/Laterality Comments TUBAL LIGATION CARPAL TUNNEL RELEASE bilateral Medical History Medical History Date Comments Hyperlipidemia GERD (gastroesophageal reflux disease) Family History Medical History Relation Name Comments Heart attack Father Colon cancer Mother Relation Name Status Comments Father Mother Social History Tobacco Use Types Packs/Day Years Used Date Smoking Tobacco: Never Tobacco Cessation:Counseling Given: Not Answered Comments Unknown Sex and Gender Information Value Date Recorded Sex Assigned at Not on file Legal Sex Female 7:50 AM CDT Gender Identity Not on file Sexual Orientation Not on file Obstetrics History Last Filed Vital Signs Vital Sign Reading [...] 01/12/2024 4:22 PM CDT Plan of Treatment Health Maintenance Due Date Last Done Comments Depression Screening 1945 Fall Risk Assessment 1945 Hepatitis C Screening 1945 Osteoporosis Screening-Bone Density Scan 1945 DTaP/Tdap/Td Vaccine (1 - Tdap) 1956 Hepatitis B Screening 1963 Zoster Vaccine (1 of 2) 1995 Well Visit 65+ 2010 Covid-19 Vaccine ( season) 01/22/20241, 06/23/2020 Influenza Vaccine (Season Ended) 2025 01/30/2020, 02/01/2019, 03/20/2018 Pneumococcal vaccine 65+ Completed 01/04/2019, 05/2017 Insurance MEDICARE [employer] Care Teams Radiology Director Relationship Specialty [place] [address] [place] [address] PCP - General Family Medicine 09/11/24
--- OUTSIDE RECORDS SUMMARY | 2024-11-07 10:08 | XMS_ITS | Patient Health Record ---
Author Organization [facility] Address [address] [place] [address] Care Team Providers Care Fashion Journalist Name Role Phone LATA SHOOK Unavailable [phone] Reason For Referral No Information Plan Of Treatment No Information
--- OUTSIDE RECORDS SUMMARY | 2024-11-07 10:08 | XMS_ITS | Encounter Summary ---
Author Organization [facility] Address [address] [place] [address] Care Team Providers Care Tester Wafer Substrate Name Role Phone Maribell Adler MD Unavailable Juma Miranda MD Primary Care Provider [phone] Juma Schneider MD Unavailable [phone] Encounter Details Date Type Department Care Team (Late st Contact Info) Description 07/27/2022 Hospital Orders Only [facility] Analysis Consultant Pre/Post [address] [place], [place] [id number] Juma Schneider MD [address] [place] [id number] Social History Tobacco Use Types Packs/Day Years [...] file Not on file Not on file COVID-19 Exposure Response Date Recorded In the last 10 days, have yo u been in contact with someone who was confirmed or suspected to have Coronavirus/COVID-19? No / Unsure 07/30/2022 10:02 AM BLANKET CUTTING MACHINE OPERATOR documented as of this encounter Functional Status * Calculated C-SSRS Risk Score (Lifetime/Recent) Answer Date of Assessment Author Status No Risk Indicated 07/30/2022 1:24 PM BLANKET CUTTING MACHINE OPERATOR Yasmeen Olmedo RN Active * Surprise Suicide Severity Rating Scale (Screener/Recent Self-Report) Question Answer Date of Assessment Author Status 1. Wish to be (Past 1 Month) No 07/30/2022 1:24 PM BLANKET CUTTING MACHINE OPERATOR Shelly Olmedo RN Acti ve 2. Non-Specific Active Suicidal Thoughts (Past 1 Month) No 07/30/2022 1:24 PM BLANKET CUTTING MACHINE OPERATOR Shelly Olmedo RN Acti ve 6. Suicidal Behavior (Lifetime) No 07/30/2022 1:24 PM BLANKET CUTTING MACHINE OPERATOR Shelly Olmedo RN Acti ve documented as of this encounter Plan of Treatment Not on file documented as of this encounter Visit Diagnoses Not on filedocumented in this encounter Care Teams Tester Wafer Substrate Relationship Specialty Start Date End Date Juma Miranda MD PCP - General FAMILY PRACTICE 07/25/18 Maribell Adler MD CARDIOVASCULAR DISEASE 07/14/16 Juma Schneider MD [address] [place] [id number] EP Toys [employer] Games Hand Finisher CLINICAL CARDIAC ELECTROPHYSIOLOGY 03/23/19 documented as of this encounter
[2024-11-07 10:29] LABS: Basophils Absolute Auto 0.1 K/mm3 (0.0-0.1); Basophils Percent Auto 0.5 % (0.2-1.2); Eosinophils Percent Auto 0.2 % (0-4.4); Hematocrit 46.9 % (37.0-47.0); Hemoglobin 15.1 g/dL (12.0-15.0); Immature Granulocyte Absolute 0.03 K/mm3 (0.00-0.031); Immature Granulocyte Percent A 0.3 % (0-0.5); Lymphocytes Absolute Auto 1.04 K/mm3 (0.9-3.2); Lymphocytes Percent Auto 11.2 % (18.3-44.2); Mean Corpuscular HGB Conc 32.2 g/dl (32-36); Mean Corpuscular Hemoglobin 29.8 pg (26-34); Mean Corpuscular Volume 92.5 fl (80-100); Mean Platelet Volume 9.8 fl (7.4-10.4); Monocytes Absolute Auto 0.4 K/mm3 (0.1-0.6); Monocytes Percent Auto 3.9 % (2.6-8.5); Neutrophils Absolute Auto 7.8 K/mm3 (1.3-6.7); Neutrophils Percent Auto 83.9 % (45.5-73.1); Platelet Count Result 248 k/mm3 (150-375); Red Blood Count 5.07 M/mm3 (4.2-5.4); Red Cell Distribution Width 14.8 % (11.5-14.5); White Blood Count 9.3 K/mm3 (4.5-10.0)
[2024-11-07 10:40] LABS: Alanine Aminotransferase 25 U/L (6-35); Albumin Level 4.3 g/dL (3.5-5.1); Alkaline Phosphatase 104 U/L (38-126); Anion Gap 12 mmol/L (4-12); Aspartate Amino Transferase 35 U/L (14-36); Bilirubin,Total 0.9 mg/dL (0.2-1.3); Blood Urea Nitrogen 14 mg/dL (7-17); Calcium 9.9 mg/dL (8.4-10.2); Carbon Dioxide 22 mmol/L (22-30); Chloride 106 mmol/L (98-107); Estimated CRCL calculation 38 ml/min; Estimated Glomerular Filt Rate 51; Glucose 139 mg/dL (65-110); Lipase 128 U/L (23-300); Potassium 3.6 mmol/L (3.4-5.0); Sodium 140 mmol/L (137-145); Total Protein 8.2 g/dL (6.3-8.2)
[2024-11-07 10:47] LABS: Add Urine Microscopic? YES; Appearance Urine Cloudy (Clear); Bacteria Urine Rare /hpf; Bilirubin Urine Negative (Negative); Blood Urine Negative (Negative); Color Urine Yellow (Yellow); Glucose Urine UA 3+ mg/dL (Negative); Ketones Urine Trace mg/dL (Negative); Leukocyte Esterase Ur 2+ LEU/UL (Negative); Need Manual Microscopic Reviewed; Nitrate Urine Negative (Negative); Protein Urine Negative (Negative); Specific Grav Ur 1.021 (1.001-1.035); Squamous Epithelial Cell Urine Few /hpf (Few); Urobilinogen Urine 0.2 mg/dL (<2.0); WBC Urine 51-100 /hpf (0-3)
--- NOTE | 2024-11-07 10:47 | ED_ITS ---
HPI - General Adult General Chief complaint: Nausea/Vomiting/Diarrhea Stated complaint: vomiting since last night Time Seen by Provider: 11/07/24 09:44 History of Present Illness HPI narrative: Patient is a 79-year-old female who presents ER with nausea vomiting. Ongoing since last night. Associated with dizziness especially with sitting up. No runny nose or sore throat or productive cough. No diarrhea. Denies urinary symptoms. Febrile to 102.6? F on arrival here which is a new change for her. No alleviating factors. Feels fatigued. Related Data Home Medications ?Medication ?Instructions ?Recorded ?Confirmed ?Last Taken ?Type amitriptyline 50 mg tablet 50 mg PO ONCE 02/28/20 06/15/24 01/15/21 History atorvastatin 10 mg tablet 10 mg PO DAILY 02/28/20 06/15/24 01/15/21 History cholecalciferol (vitamin D3) 125 125 mcg PO DAILY 02/28/20 06/15/24 01/15/21 History mcg (5,000 unit) capsule mecobalamin (vitamin B12) 1,000 1,000 mcg sublingual DAILY 02/28/20 06/15/24 01/15/21 History mcg disintegrating tablet,sublingual pantoprazole 20 mg tablet,delayed 20 mg PO BID 02/28/20 06/15/24 01/15/21 History release ropinirole 0.5 mg tablet 0.5 mg PO BID 02/28/20 06/15/24 01/15/21 History metformin 1,000 mg tablet 1,000 mg PO DAILY 06/15/24 06/15/24 Unknown History semaglutide 0.25 mg or 0.5 mg (2 0.25 mg subcut WEEKLY 06/15/24 06/15/24 Unknown History mg/3 mL) subcutaneous pen injector (Ozempic) Allergies Allergy/AdvReac Type Severity Reaction Status Date / Time amoxicillin Allergy Unknown Rash Verified 11/07/24 10:01 Penicillins Allergy Unknown Rash Verified 11/07/24 10:01 Sulfa (Sulfonamide Allergy Unknown RASH Verified 11/07/24 10:01 Antibiotics) codeine AdvReac Unknown Nausea and Verified 11/07/24 10:39 Vomiting morphine AdvReac Unknown Nausea and Verified 11/07/24 10:01 Vomiting Review of Systems 2 Review of Systems: All systems reviewed & are unremarkable except as noted in HPI and below Constitutional: Constitutional: Reports no additional constitutional complaints ENT: Reports system reviewed and no additional complaints, except as documented Respiratory: Respiratory: Reports no additional respiratory complaints Gastrointestinal: Gastrointestinal: Reports no additional gastrointestinal complaints Musculoskeletal: Musculoskeletal: Reports no additional musculoskeletal complaints Neurologic: Reports system reviewed and no additional complaints, except as documented [facility] Past Medical History Medical History (Updated 11/07/24 @ 12:46 by Davon Ribera MD) Diabetes Esophageal dilatation 2019 CVA (cerebral vascular accident) 2019 no residual Hypertension Dysphagia Hypercholesteremia Family history of malignant neoplasm of colon Diverticulosis Family history of colon cancer in mother History of colon polyps Surgical History Surgical History Hx of appendectomy Social History Social History Smoking status: Never smoker Substance use: never Living arrangements: with family Gender identity (if verbalized by the patient): Female Spiritual care concerns: No Exam 2 Narrative: GENERAL: Well-appearing, well-nourished, and in no acute distress. HEAD: Normocephalic, atraumatic. EYES: PERRL and EOMI. Left gaze nystagmus. ENT: Mucous membranes moist. TMs normal bilaterally. Ear canals free of cerumen. CHEST: Clear to auscultation. No respiratory distress. HEART: Regular rate and rhythm. Normal peripheral pulses. ABDOMEN: Soft, nontender, nondistended. EXTREMITIES: Normal range of motion. No edema. SKIN: Warm, dry, no rash. NEURO: Alert and oriented x3. PSYCH: Normal mood and affect. Course Course Emergency Course: Creatinine slightly bumped indicating dehydration. No leukocytosis. Urinalysis concerning for infection. Patient without cough or shortness of breath thus pneumonia is not favored. Dizziness improved with meclizine. Appropriate for discharge home. Follow-up with PCP. Vital Signs Vital signs: Vital Signs Temperature 102.6 F H 11/07/24 09:49 Pulse Rate 94 11/07/24 09:49 Respiratory Rate 22 H 11/07/24 09:49 Blood Pressure 150/68 H 11/07/24 09:49 Pulse Oximetry 93 11/07/24 09:49 Temperature 101.5 F H 11/07/24 12:16 Pulse Rate 101 H 11/07/24 12:16 Respiratory Rate 20 11/07/24 12:16 Blood Pressure 134/69 11/07/24 12:16 Pulse Oximetry 95 11/07/24 12:16 Oxygen Delivery Room Air 11/07/24 09:54 Medical Decision Making Vital Signs Vital Signs: Vital Signs Temperature 102.6 F H 11/07/24 09:49 Pulse Rate 94 11/07/24 09:49 Respiratory Rate 22 H 11/07/24 09:49 Blood Pressure 150/68 H 11/07/24 09:49 Pulse Oximetry 93 11/07/24 09:49 Temperature 101.5 F H 11/07/24 12:16 Pulse Rate 101 H 11/07/24 12:16 Respiratory Rate 20 11/07/24 12:16 Blood Pressure 134/69 11/07/24 12:16 Pulse Oximetry 95 11/07/24 12:16 Oxygen Delivery Room Air 11/07/24 09:54 Lab Data 11/07/24 10:08 11/07/24 10:08 Labs: Lab Results 11/07/24 11/07/24 Range/Units 10:08 11:10 WBC 9.3 (4.5-10.0) K/mm3 RBC 5.07 (4.2-5.4) M/mm3 Hgb 15.1 H (12.0-15.0) g/dL Hct 46.9 (37.0-47.0) % MCV 92.5 (80-100) fl MCH 29.8 (26-34) pg MCHC 32.2 (32-36) g/dl RDW 14.8 H (11.5-14.5) % Plt Count 248 (150-375) k/mm3 MPV 9.8 (7.4-10.4) fl Immature Gran % (Auto) 0.3 (0-0.5) % Neut % (Auto) 83.9 H (45.5-73.1) % Lymph % (Auto) 11.2 L (18.3-44.2) % [place] % (Auto) 3.9 (2.6-8.5) % Eos % (Auto) 0.2 (0-4.4) % Baso % (Auto) 0.5 (0.2-1.2) % Lymph # (Auto) 1.04 (0.9-3.2) K/mm3 [place] # (Auto) 0.4 (0.1-0.6) K/mm3 Eos # (Auto) 0.0 (0-0.3) K/mm3 Baso # (Auto) 0.1 (0.0-0.1) K/mm3 Abs Immat Gran (auto) 0.03 (0.00-0.031) K/mm3 Absolute Neuts (auto) 7.8 H (1.3-6.7) K/mm3 Absolute Nucleated RBC 0.000 (0.0-0.012) K/mm3 Nucleated RBC % 0.0 (0.0-0.2) % Sodium 140 (137-145) mmol/L Potassium 3.6 (3.4-5.0) mmol/L Chloride 106 (98-107) mmol/L Carbon Dioxide 22 (22-30) mmol/L Anion Gap 12 (4-12) mmol/L BUN 14 (7-17) mg/dL Creatinine 1.04 H (0.7-1.0) mg/dL Estim Creat Clear Calc 38 ml/min Estimated GFR 51 L (59 - ) Glucose 139 H (65-110) mg/dL Calcium 9.9 (8.4-10.2) mg/dL Total Bilirubin 0.9 (0.2-1.3) mg/dL AST 35 (14-36) U/L ALT 25 (6-35) U/L Alkaline Phosphatase 104 (38-126) U/L Total Protein 8.2 (6.3-8.2) g/dL Albumin 4.3 (3.5-5.1) g/dL Lipase 128 (23-300) U/L Urine Color Yellow (Yellow) Urine Appearance Cloudy H (Clear) Urine pH 5.0 (5.0-9.0) Ur Specific [place] 1.021 (1.001-1.035) Urine Protein Negative (Negative) mg/dL Urine Glucose (UA) 3+ H (Negative) mg/dL Urine Ketones Trace H (Negative) mg/dL Ur Blood (Man) Negative (Negative) Urine Nitrate Negative (Negative) Urine Bilirubin Negative (Negative) Urine Urobilinogen 0.2 (<2.0) mg/dL Add Ur Microanalysis Reviewed Leukocyte Esterase Rfl 2+ H (Negative) JOAO/UL Urine RBC 3-5 H (0-2) /hpf Urine WBC 51-100 H (0-3) /hpf Ur Squamous Epith Cells Few (Few) /hpf Urine Bacteria Rare /hpf Urine Casts 3-5 Influenza A (RT-PCR) Negative (Negative) Influenza B (RT-PCR) Negative (Negative) RSV (RT-PCR) Negative (Negative) SARS-CoV-2 RNA (RT-PCR) Negative (Negative) Imaging Data Radiologist's impression: ITS Impressions Chest X-Ray 11/07/24 11:42 IMPRESSION: Bilateral interstitial thickening which may indicate pulmonary edema versus pneumonitis. Clinical correlation advised. Discharge Plan Discharge Clinical Impression: Dehydration, Vertigo, Acute UTI Patient Disposition: Home Condition: Stable Instructions: Antibiotic Form, Dehydration (ED), Urinary Tract Infection in Women (ED) Additional Instructions: You should return to the emergency department if you develop severe nausea and vomiting and are unable to keep liquids down, if you develop severe back/flank or stomach pain, or if your symptoms are not clearly improving at home. Patient Language: German Prescriptions: New meclizine 25 mg tablet 25 mg PO TID PRN (Reason: dizziness) Qty: 20 0RF cefuroxime axetil 500 mg tablet 500 mg PO BID Qty: 14 0RF ondansetron 4 mg tablet,disintegrating 4 mg PO Q6H PRN (Reason: nausea and vomiting) Qty: 10 0RF No Action prednisone 20 mg tablet 20 mg PO DAILY Qty: 5 0RF valacyclovir [Valtrex] 1 gram tablet 1,000 mg PO Q8H Qty: 21 0RF atorvastatin 10 mg tablet 10 mg PO DAILY pantoprazole 20 mg tablet,delayed release (DR/EC) 20 mg PO BID amitriptyline 50 mg tablet 50 mg PO ONCE ropinirole 0.5 mg tablet 0.5 mg PO BID cholecalciferol (vitamin D3) 125 mcg (5,000 unit) capsule 125 mcg PO DAILY mecobalamin (vitamin B12) 1,000 mcg tablet,disintegrating 1,000 mcg sublingual DAILY Rx Instructions: place tablet under tongue and allow to dissolve for at least30 secs before swallowing Ozempic 0.25 mg or 0.5 mg (2 mg/3 mL) pen injector 0.25 mg subcut WEEKLY Rx Instructions: for 4 weeks metformin 1,000 mg tablet 1,000 mg PO DAILY Follow-up/Referrals: Quarton,Juma Mcleod MD [Primary Care Provider] - 1 Week
[2024-11-07] MEDS: SODIUM CHLORIDE 0.9% IV 1,000 ML 999 ML IV CONT (11:20)
[2024-11-07] MEDS: MECLIZINE HCL 25 MG TABLET PO (11:21)
[2024-11-07] MEDS: ACETAMINOPHEN 325 MG TABLET 650 MG PO (11:22)
--- OUTSIDE RECORDS SUMMARY | 2024-11-07 11:28 | XMS_ITS | Encounter Summary ---
Author Organization [facility] Healthcare Address [address] [place] [address] Care Team Providers Care Apprentice Architect Name Role Phone No, Physician Primary Care Provider [phone] Juma Miranda MD Primary Care Provider [phone] Encounter Details Date Type Department Care Team (Late st Contact Info) Description 03/20/2024 Orders Only [facility] Medical Group [facility] [address] [place] [id number] Scanning, Provider Social History Tobacco Use [...] on filedocumented in this encounter Care Teams Apprentice Architect Relationship Specialty Start Date End Date No, Physician PCP - General 03/18/19 09/10/24 [place] [address] [place] [address] PCP - General Family Medicine 09/11/24 documented as of this encounter
--- OUTSIDE RECORDS SUMMARY | 2024-11-07 11:28 | XMS_ITS | Referral Summary ---
Author Organization [facility] [place] [address] Address [address] [place] [address] Care Team Providers Care Nut Sheller Name Role Phone Juma Miranda MD Primary Care Provider [phone] Encounters Date Type Department Care Team Description 09/11/2024 12:30 PM CDT Office Visit [facility] Medical [facility] at [address] [address] Fabian Sebastian NP Blepharitis of [...] of Treatment Not on file Insurance MEDICARE [facility] [employer] [place] [employer] Care Teams Nut Sheller Relationship Specialty [place] [id number] [address] PCP - General Family Medicine 09/11/24
--- OUTSIDE RECORDS SUMMARY | 2024-11-07 11:28 | XMS_ITS | Clinical Summary ---
Author Organization [facility] [place] [address] Address [address] [place] [address] Care Team Providers Care Senior Advisory Name Role Phone Juma Miranda MD Primary Care Provider [phone] Allergies Active Allergy Reactions Criticality Noted Date [...] Description 09/11/2024 12:30 PM CDT Office Visit [facility] Medical Group [facility] at [address] [address] Fabian Sebastian NP Blepharitis of [...] Completed 01/04/2019, 05/2017 Insurance MEDICARE [employer] [place] [employer] [place] [employer] Care Teams Senior Advisory Relationship Specialty [place] [address] [place] [address] PCP - General Family Medicine 09/11/24
[2024-11-07 11:53] LABS: Influenza A QL RT-PCR Negative (Negative); Influenza B QL RT-PCR Negative (Negative); RSV RNA, RT-PCR Negative (Negative); SARS-CoV-2 RNA PCR Negative (Negative)
== END 2024-11-07 13:13 | disposition home or self-care (01) ==
PROVIDERS: Emergency Provider Emergency Medicine; PCP Family Medicine
DX: N39.0 Urinary tract infection, site not specified (principal); E86.0 Dehydration; R42 Dizziness and giddiness; Z20.822 Contact with and (suspected) exposure to COVID-19; I10 Essential (primary) hypertension; E11.9 Type 2 diabetes mellitus without complications; E78.00 Pure hypercholesterolemia, unspecified; Z86.73 Personal history of transient ischemic attack (TIA), and cerebral infarction without residual deficits; Z86.0100 Personal history of colon polyps, unspecified; Z79.85 Long-term (current) use of injectable non-insulin antidiabetic drugs; Z79.899 Other long term (current) drug therapy; Z79.84 Long term (current) use of oral hypoglycemic drugs
CPT/HCPCS: 36415; 71046; 80053; 81001; 83690; 85025; 87077; 87086; 87147; 87186; 87637; 96360; 99283; A9270; J7030

== ENCOUNTER 2024-11-25 11:21 | Emergency (ER) | payer MEDICARE, OTHER, SELFPAY ==
--- NOTE | ~2024-11-25 | CT_ITS ---
History: Weakness and vertigo PROCEDURE: CT head without contrast. COMPARISON: 03/18/2019 TECHNIQUE: Axial imaging of the head performed from the skull base to the vertex without IV contrast. Sagittal a nd coronal reformations obtained. DLP: 605 mGy-cm FINDINGS: The ventricles are enlarged. The dilatation of the ventricles is proportional to the degree of sulcal prominence, not uncommon in the senescent brain. Decreased attenuation is identified within the periventricular white matter, likely secondary to micr ovascular ischemic disease, in a patient of this age. There is no mass, mass effect or midline shift. There is no abnormal extra-axial fluid collection or intracranial hemorrhage. Visualized paranasal sinuses are clear. The mastoid air cells are well aerated. No acute displaced fractures within the overlying cranium. Impression: No acute intracranial hemorrhage or suspicious mass effect. Reviewed, dictated and finalized at location A. Impression: No acute intracranial hemorrhage or suspicious mass effect.
--- NOTE | ~2024-11-25 | XR_ITS ---
CHEST RADIOGRAPH, PA AND LATERAL CLINICAL HISTORY: weakness, dizziness . COMPARISON: 11/07/2024 TECHNIQUE: PA and lateral views of the chest. FINDINGS Loop recorder projects to the left of midline. The remainder of the cardiomediastinal silhouette is otherwise unremarkable. Platelike atelectasis within the right mid to lower lung field. Biapical scarring, unchanged. Blunting of the left costophrenic sulcus suggesting a small left-sided pleural effusion, equivocal on lateral view. The remainder of the lungs are otherwise clear. IMPRESSION: Interval development of platelike atelectasis within the right mid to lower lung field with additiona l findings suggesting a small left-sided pleural effusion, as detailed above. Reviewed, dictated and finalized at location A. IMPRESSION: Interval development of platelike atelectasis within the right mid to lower roselia g field with additional findings suggesting a small left-sided pleural effusion , as detailed above.
--- OUTSIDE RECORDS SUMMARY | 2024-11-25 11:23 | XMS_ITS | Clinical Summary ---
Author Organization [facility] [place] [address] Address [address] [place] [address] Care Team Providers Care Soundscriber Mechanic Name Role Phone Juma Miranda MD Primary Care Provider [phone] Allergies Active Allergy Reactions Criticality Noted Date [...] daily Active rOPINIRole (REQUIP) 0.5 mg tablet Active atorvastatin (LIPITOR) 10 mg tablet 021 Active amitriptyline (ELAVIL) 50 mg tablet [address] (PROTONIX) 20 mg EC tablet Take 1 tablet (20 mg total) by mouth 2 (two) times a day 022 Active benzonatate (TESSALON) 100 mg capsuleIndication s:Cough Take 1 capsule (100 mg total) by mouth 3 (three) times a day as needed for cough 42 capsule 024 Active Additional Information Patient not taking.Reported on 11/22/2024 amitriptyline (ELAVIL) 75 mg tablet 024 Active predniSONE (DELTASONE) 20 mg tablet 024 Active cefuroxime (CEFTIN) 500 mg tablet Take 1 tablet (500 mg total) by mouth 2 (two) times a day 025 Active Jardiance 10 mg tablet Take 1 tablet (10 mg total) by mouth daily 025 Active meclizine (ANTIVERT) 25 mg tablet TAKE 1 TABLET BY MOUTH THREE TIMES DAILY NEEDED FOR DIZZINESS 025 Active ondansetron ODT (ZOFRAN-ODT) 4 mg disintegrating tablet DISSOLVE 1 TABLET IN MOUTH EVERY 6 HOURS NEEDED FOR NAUSEA AND VOMITING 025 Active nitrofurantoin monohydrate (MACROBID) 100 mg capsuleIndication s:Dysuria Take 1 capsule (100 mg total) by mouth 2 (two) times a day for 5 days 10 capsule 025 2024 Active nitrofurantoin monohydrate (MACROBID) 100 mg capsule 024 2024 Discontinued Active Problems No known active problems Encounters Date Type Department Care Team Description 11/24/2024 Results Follow-Up [facility] Medical [facility] at [address] [phone] Yuni Marrero NP Urine culture Urine, clean voided 11/22/2024 2:15 PM CDT Office Visit [facility] at [address] [phone] Lucille Valdez NP Dysuria (Primary Dx) 11/22/2024 2:13 PM CDT - 11/22/2024 11:59 PM CDT Hospital Encounter [address] [address] Dysuria Discharge Disposition: Discharge to home or self care 09/11/2024 12:30 PM CDT Office Visit [facility] at [address] [phone] Fabian Sebastian NP Blepharitis of [...] Sign Reading Time Taken Comments Blood Pressure 126/76 11/22/2024 2:11 PM CDT Pulse 66 11/22/2024 2:11 PM CDT Temperature 37.1 C (98.7 F) 11/22/2024 2:11 PM CDT Respiratory Rate 21 11/22/2024 2:11 PM CDT Oxygen Saturation 95% 11/22/2024 2:11 PM CDT Inhaled Oxygen Concentration - - Weight 84.4 kg (186 lb) 11/22/2024 2:11 PM CDT Height 161.3 cm (5' 3.5) 11/22/2024 2:11 PM CDT Body Mass Index 32.43 11/22/2024 2:11 PM CDT Plan of Treatment Health Maintenance Due Date Last Done Comments Depression Screening 1945 Fall Risk Assessment 1945 Hepatitis C Screening 1945 Osteoporosis Screening-Bone Density Scan 1945 DTaP/Tdap/Td Vaccine (1 - Tdap) 1956 Hepatitis B Screening 1963 Zoster Vaccine (1 of 2) 1995 Well Visit 65+ 2010 Covid-19 Vaccine (3 - season) 01/22/202405/2020, 06/23/2020 Influenza Vaccine (#1) 2025 , 02/01/2019, 03/20/2018 Pneumococcal vaccine 65+ Completed 01/04/2019, 05/2017 Procedures Procedure Name Priority Date/Time Associated Diagnosis Comments POCT URINALYSIS DIPSTICK Routine 11/22/2024 2:45 PM CDT Dysuria URINE CULTURE Routine 11/22/2024 2:13 PM CDT Dysuria from Last 3 Months Results * (ABNORMAL) POCT urinalysis dipstick (11/22/2024 2:45 PM CDT) Color, Urine, POC Light Yellow Clarity, ur, POC Cloudy(A) Clear Glucose, ur, POC 1000.(A) Negative Bilirubin, ur, POC Negative Negative Ketones, ur, POC Negative Negative Specific [place], POC 1.010 1.003 - 1.030 Blood, ur, POC Negative Negative pH, ur, POC 5.5 5.0 - 8.0 Protein, ur, POC Negative Negative Urobilinogen, urine, POC 0.2 0.2 - 1.0 mg/dL Nitrite, ur, POC Positive(A) Negative Leukocytes, ur, POC Trace(A) Negative Lot Number 0 Urine 11/22/2024 2:45 PM CDT Lucille Valdez NP POINT OF CARE TEST ORDERAB LES Final Result * (ABNORMAL) Urine culture Urine, clean voided (11/22/2024 2:13 PM CDT) Report Final Report: Greater than or equal to 100,000 colonies/mL of Klebsiella pneumoniae (.) Comment:Testing performed by : [facility], [address] [place]., [address] Organism KLEBSIELLA PNEUMONIAE [place] Urine, clean voided 11/22/2024 2:13 PM CDT 11/23/2024 12:28 AM CDT Narrative [place] - 11/24/2024 2:52 PM CDT Testing performed by [facility] Microbiology Laboratory ([phone]) Organism Antibiotic Method Susceptibility Klebsiella pneumoniae Ampicillin INTERPRETATION Resistant Klebsiella pneumoniae Cefazolin INTERPRETATION Susceptible Klebsiella pneumoniae Nitrofurantoin INTERPRETATION Susceptible Klebsiella pneumoniae Gentamicin INTERPRETATION Susceptible Klebsiella pneumoniae Trimethoprim with Sulfamethoxazole INTERPRETATION Susceptible Klebsiella pneumoniae Meropenem INTERPRETATION Susceptible Klebsiella pneumoniae Cefepime INTERPRETATION Susceptible Klebsiella pneumoniae Ciprofloxacin INTERPRETATION Susceptible Klebsiella pneumoniae Ceftazidime INTERPRETATION Susceptible Klebsiella pneumoniae Ceftriaxone INTERPRETATION Susceptible Klebsiella pneumoniae Piperacillin/Tazobactam INTERPRE TATION Susceptible Klebsiella pneumoniae Cephalexin INTERPRETATION Susceptible Klebsiella pneumoniae Cefuroxime-axetil INTERPRETATION Susceptible Klebsiella pneumoniae Cefdinir INTERPRETATION Susceptible us Lucille Valdez NP LAB MICROBIOLOGY - [place] [id number] [address] Department [place] [address] from Last 3 Months Insurance MEDICARE [employer] [place] [employer] [place] [employer] Care Teams Soundscriber Mechanic Relationship Specialty [place] [address] [place] [address] PCP - General Family Medicine 09/11/24
--- OUTSIDE RECORDS SUMMARY | 2024-11-25 11:23 | XMS_ITS | Encounter Summary ---
Author Organization [facility] Address [address] [place] [address] Care Team Providers Care Municipal Services Manager Name Role Phone Maribell Adler MD Unavailable Juma Miranda MD Primary Care Provider [phone] Juma Schneider MD Unavailable [phone] Encounter Details Date Type Department Care Team (Late st Contact Info) Description 07/27/2022 Hospital Orders Only [facility] Pre/Post [address] [place], [place] [address] Juma Schneider MD [address] [place] [phone] Social History Tobacco Use Types Packs/Day Years [...] Coronavirus/COVID-19? No / Unsure 07/30/2022 10:02 AM MANAGER TELEMETRY documented as of this encounter Functional Status * Calculated C-SSRS Risk Score (Lifetime/Recent) Answer Date of Assessment Author Status No Risk Indicated 07/30/2022 1:24 PM MANAGER TELEMETRY Yasmeen Olmedo RN Active * [place] Suicide Severity Rating Scale (Screener/Recent Self-Report) Question Answer Date of Assessment Author Status 1. Wish to be (Past 1 Month) No 07/30/2022 1:24 PM MANAGER TELEMETRY Shelly Olmedo RN Acti ve 2. Non-Specific Active Suicidal Thoughts (Past 1 Month) No 07/30/2022 1:24 PM MANAGER TELEMETRY Shelly Olmedo RN Acti ve 6. Suicidal Behavior (Lifetime) No 07/30/2022 1:24 PM MANAGER TELEMETRY Shelly Olmedo RN Acti ve documented as of this encounter Plan of Treatment Not on file documented as of this encounter Visit Diagnoses Not on filedocumented in this encounter Care Teams Municipal Services Manager Relationship Specialty Start Date End Date Juma Miranda MD PCP - General FAMILY PRACTICE 07/25/18 Maribell Adler MD CARDIOVASCULAR DISEASE 07/14/16 Juma Schneider MD [address] [place] [phone] EP [employer] CLINICAL CARDIAC ELECTROPHYSIOLOGY 03/23/19 documented as of this encounter
--- OUTSIDE RECORDS SUMMARY | 2024-11-25 11:23 | XMS_ITS | Referral Summary ---
Author Organization [facility] [address] Address [address] [place] [address] Care Team Providers Care Biology Research Assistant Name Role Phone Juma Miranda MD Primary Care Provider [phone] Encounters Date Type Department Care Team Description 11/24/2024 Results Follow-Up [facility] Medical Group [facility] Care at [address] [phone] Yuni Marrero NP Urine culture Urine, clean voided 11/22/2024 2:13 PM CDT - 11/22/2024 11:59 PM [place] [address] Dysuria Discharge Disposition: Discharge to home or self care 11/22/2024 2:15 PM CDT Office Visit [facility] Medical Group [facility] at [address] [phone] Lucille Valdez NP Dysuria (Primary Dx) 09/11/2024 12:30 PM CDT Office Visit [facility] Medical [facility] Care at [address] [phone] Fabian Sebastian NP Blepharitis of [...] tablet Active atorvastatin (LIPITOR) 10 mg tablet Active amitriptyline (ELAVIL) 50 mg tablet Active pantoprazole DR (PROTONIX) 20 mg EC tablet Take 1 tablet (20 mg total) by mouth 2 (two) times a day Active benzonatate (TESSALON) 100 mg capsuleIndication s:Cough Take 1 capsule (100 mg total) by mouth 3 (three) times a day as needed for cough 42 capsule Active Additional Information Patient not taking.Reported on 11/22/2024 amitriptyline (ELAVIL) 75 mg tablet Active predniSONE (DELTASONE) 20 mg tablet Active cefuroxime (CEFTIN) 500 mg tablet Take 1 tablet (500 mg total) by mouth 2 (two) times a day Active Jardiance 10 mg tablet Take 1 tablet (10 mg total) by mouth daily Active meclizine (ANTIVERT) 25 mg tablet TAKE 1 TABLET BY MOUTH THREE TIMES DAILY NEEDED FOR DIZZINESS Active ondansetron ODT (ZOFRAN-ODT) 4 mg disintegrating [...] Discontinued Active Problems No known active problems Social [...] 11/22/2024 2:11 PM CDT Plan of Treatment Not on file Procedures Procedure Name Priority Date/Time Associated Diagnosis [...] Negative Ketones, ur, POC Negative Negative Specific [place], POC 1.010 1.003 - 1.030 Blood, ur, [...] Klebsiella pneumoniae (.) Comment:Testing performed by : [facility], [address] [place]., [address] Organism KLEBSIELLA PNEUMONIAE [place] JEFF Urine, clean voided 11/22/2024 2:13 PM CDT 11/23/2024 12:28 AM CDT Narrative [place] JEFF - 11/24/2024 2:52 PM CDT Testing performed by [facility] ([phone]) Organism Antibiotic Method Susceptibility Klebsiella pneumoniae Ampicillin [...] INTERPRETATION Susceptible Klebsiella pneumoniae Cefdinir INTERPRETATION Susceptible Lucille Valdez NP LAB MICROBIOLOGY - GENERAL ORDERABLES [place] [id number] [address] Department [place] [address] from Last 3 Months Insurance MEDICARE [employer] [place] [employer] [place] [employer] Care Teams Biology Research Assistant Relationship Specialty [place] [address] [place] [address] PCP - General Family Medicine 09/11/24
--- OUTSIDE RECORDS SUMMARY | 2024-11-25 11:23 | XMS_ITS | Encounter Summary ---
Author Organization [facility] Healthcare Address [facility] [place] [address] Care Team Providers Care Needle Bar Molder Name Role Phone Juma Miranda MD Primary Care Provider [phone] Encounter Details Date Type Department Care Team (Late st Contact Info) Description 11/24/2024 Results Follow-Up [facility] Medical Group [facility] at [address] [address] Yuni Marrero NP [address] [place] [address] [address] [place] [address] Urine culture Urine, clean voided Social History Tobacco Use Types Packs/Day Years Used Date Smoking Tobacco: Never Comments Unknown Sex and Gender Information Value Date Recorded Sex Assigned at Not on file Legal Sex Female 7:50 AM CDT Gender Identity Not on file Sexual Orientation Not on file documented as of this encounter Miscellaneous Notes * Result Encounter Note - Marichuy Betts MA - 11/24/2024 3:46 PM CDT Patient aware. * Result Encounter Note - Yuni Marrero NP - 11/24/2024 3:04 PM CDT Please call patient to alert her that urine culture was positive for a urinary tract infection. Organism susceptible to macrobid as prescribed, no change in treatment necessary. She should f/u with PCP if s/s persist. documented in this encounter Plan of Treatment Not on file documented as of this encounter Visit Diagnoses Not on filedocumented in this encounter Care Teams Needle Bar Molder Relationship Specialty [place] [address] [place] [address] PCP - General Family Medicine 09/11/24 documented as of this encounter
--- OUTSIDE RECORDS SUMMARY | 2024-11-25 11:23 | XMS_ITS | Patient Health Record ---
Author Organization [facility] Address [address] [place] [address] Care Team Providers Care Audit Associate Name Role Phone LATA SHOOK Unavailable [phone] Reason For Referral No Information Plan Of Treatment No Information
--- OUTSIDE RECORDS SUMMARY | 2024-11-25 11:23 | XMS_ITS | Encounter Summary ---
Author Organization [facility] Healthcare Address [address] [place] [address] Care Team Providers Care Food Preparation Supervisor Name Role Phone No, Physician Primary Care Provider [phone] Juma Miranda MD Primary Care Provider [phone] Encounter Details Date Type Department Care Team (Late st Contact Info) Description 03/20/2024 Orders Only [facility] Medical Group [facility] [address] [place] [address] Scanning, Provider Social History Tobacco Use [...] on filedocumented in this encounter Care Teams Food Preparation Supervisor Relationship Specialty Start Date End Date No, Physician PCP - General 03/18/19 09/10/24 [place] [address] [place] [address] PCP - General Family Medicine 09/11/24 documented as of this encounter
--- OUTSIDE RECORDS SUMMARY | 2024-11-25 11:23 | XMS_ITS | Clinical Summary ---
Author Organization [facility] Address [address] [place] [address] Care Team Providers Care Granulating Machine Operator Name Role Phone Juma Miranda MD Primary Care Provider Juma Schneider MD Unavailable [phone] Allergies Active Allergy Reactions Criticality Noted [...] zoie confirm ilr -- 07-13-2019 Cryptogenic stroke ([facility]) 04/06/2019 Bilateral carotid artery stenosis 07/20/2018 Other chest pain 01/19/2018 Nonrheumatic aortic valve insufficiency 06/24/19 17 Abnormal laboratory test 06/23/2016 Heart murmur Pulsatile neck mass HLD (hyperlipidemia) Aneurysm of carotid artery IBS (irritable bowel syndrome) Family History Medical History Relation Comments Heart Attack Father [place] Father Heart Attack Paternal Grandfather Relation Status [...] Comments Blood Pressure 143/86 07/30/2022 1:00 PM NET APPLICATION SUPPORT SPECIALIST Pulse 76 07/30/2022 1:00 PM NET APPLICATION SUPPORT SPECIALIST Temperature 36 C (96.8 F) 07/30/2022 1:00 PM NET APPLICATION SUPPORT SPECIALIST Respiratory Rate 16 07/30/2022 1:00 PM NET APPLICATION SUPPORT SPECIALIST Oxygen Saturation 97% 07/30/2022 1:00 PM NET APPLICATION SUPPORT SPECIALIST Inhaled Oxygen Concentration - - Weight 84.1 kg (185 lb 6.5 oz) 07/30/2022 1:00 P M NET APPLICATION SUPPORT SPECIALIST Height 161.3 cm (5' 3.5) 07/30/2022 1:00 PM NET APPLICATION SUPPORT SPECIALIST Body Mass Index 32.32 07/30/2022 1:00 PM NET APPLICATION SUPPORT SPECIALIST Plan of Treatment Health Maintenance Due Date [...] this topic Medical Devices Implanted Type Area Pediatric Clinical Dietician Device Identifier Shelf Expiration Date Model / Serial / Lot St Zoie Loop Recorder 07/13/2019 Implanted:07/13 by Juma Schneider MD (Quantity not on file) [employer] - DIV [employer] 07/13/2020 [id number] / [id number] / Insurance MEDICARE [employer] Advance Directives Documents on File Type Date Recorded Patient Healthcare Manager Expl anation Advance Directives and Living Will 08/03/2022 3:25 PM 04/29/2020 [place] Advance Directives and Living Will 08/03/2022 2:39 PM POA FOR HEALTH CARE * Full Code (Latest Code Status on File) Date Activated Date Inactivated Comments 07/13/2019 1:03 PM 07/13/2019 3:46 PM Care Teams Granulating Machine Operator Relationship Specialty Start Date End Date Juma Miranda MD PCP - General FAMILY PRACTICE 07/25/18 Juma Schneider MD [address] [place] [address] EP Sales Service Assistant CLINICAL CARDIAC ELECTROPHYSIOLOGY 03/23/19
[2024-11-25 11:24] VITALS: BP 129/62; PULSE 78; RESP 16; TEMP 36.6; O2SAT 96
--- NOTE | 2024-11-25 11:38 | ECG_ITS ---
Test Date: 2024-11-25 11:43:29 Measurements Intervals Totz Rate: 71 P: 37 GA: 178 QRS: 3 QRSD: 83 T: 24 QT: 355 QTc: 388 Interpretive Statements SINUS RHYTHM No previous ECG available for comparison Electronically Signed On 11-25-2024 13:52:14 CDT by Kumar Chaidez M.D.
[2024-11-25 11:52] LABS: Hematocrit 41.9 % (37.0-47.0); Hemoglobin 13.6 g/dL (12.0-15.0); Immature Granulocyte Percent A 0.2 % (0-0.5); Lymphocytes Absolute Auto 1.72 K/mm3 (0.9-3.2); Mean Corpuscular HGB Conc 32.5 g/dl (32-36); Mean Corpuscular Hemoglobin 30.0 pg (26-34); Mean Corpuscular Volume 92.5 fl (80-100); Nucleated Red Blood Cells Absolute Auto 0.000 K/mm3 (0.0-0.012); Nucleated Red Blood Cells Perc 0.0 % (0.0-0.2); Platelet Count Result 250 k/mm3 (150-375); Red Blood Count 4.53 M/mm3 (4.2-5.4); White Blood Count 6.4 K/mm3 (4.5-10.0)
[2024-11-25 12:01] VITALS: BP 121/75; PULSE 70; RESP 14; O2SAT 95
[2024-11-25 12:07] LABS: Alanine Aminotransferase 22 U/L (6-35); Albumin Level 3.8 g/dL (3.5-5.1); Alkaline Phosphatase 88 U/L (38-126); Anion Gap 6 mmol/L (4-12); Aspartate Amino Transferase 30 U/L (14-36); Bilirubin,Total 0.6 mg/dL (0.2-1.3); Blood Urea Nitrogen 15 mg/dL (7-17); Calcium 10.1 mg/dL (8.4-10.2); Carbon Dioxide 23 mmol/L (22-30); Chloride 109 mmol/L (98-107); Estimated Glomerular Filt Rate > 60; Glucose 110 mg/dL (65-110); Potassium 3.9 mmol/L (3.4-5.0); Sodium 138 mmol/L (137-145); Total Protein 7.2 g/dL (6.3-8.2)
[2024-11-25 12:10] LABS: Add Urine Microscopic? YES; Appearance Urine Clear (Clear); Glucose Urine UA 3+ mg/dL (Negative); Leukocyte Esterase Ur 1+ LEU/UL (Negative); Need Manual Microscopic Reviewed; Nitrate Urine Negative (Negative); Non Pathogenic Casts 0-2; Specific Grav Ur 1.010 (1.001-1.035)
--- OUTSIDE RECORDS SUMMARY | 2024-11-25 13:10 | XMS_ITS | Encounter Summary ---
Author Organization [facility] Address [address] [place] [address] Care Team Providers Care Bookkeeping Machine Operator Name Role Phone Maribell Adler MD Unavailable Juma Miranda MD Primary Care Provider [phone] Juma Schneider MD Unavailable [phone] Encounter Details Date Type Department Care Team (Late st Contact Info) Description 07/27/2022 Hospital Orders Only [employer] Installer Pre/Post [address] [place], [place] [address] Juma Schneider MD [address] [place] [id number] Social History Tobacco Use Types Packs/Day Years [...] Coronavirus/COVID-19? No / Unsure 07/30/2022 10:02 AM EXERCISE PHYSIOLOGY PROFESSOR documented as of this encounter Functional Status * Calculated C-SSRS Risk Score (Lifetime/Recent) Answer Date of Assessment Author Status No Risk Indicated 07/30/2022 1:24 PM EXERCISE PHYSIOLOGY PROFESSOR Yasmeen Olmedo RN Active * Thrall Suicide Severity Rating Scale (Screener/Recent Self-Report) Question Answer Date of Assessment Author Status 1. Wish to be (Past 1 Month) No 07/30/2022 1:24 PM EXERCISE PHYSIOLOGY PROFESSOR Shelly Olmedo RN Acti ve 2. Non-Specific Active Suicidal Thoughts (Past 1 Month) No 07/30/2022 1:24 PM EXERCISE PHYSIOLOGY PROFESSOR Shelly Olmedo RN Acti ve 6. Suicidal Behavior (Lifetime) No 07/30/2022 1:24 PM EXERCISE PHYSIOLOGY PROFESSOR Shelly Olmedo RN Acti ve documented as of this encounter Plan of Treatment Not on file documented as of this encounter Visit Diagnoses Not on filedocumented in this encounter Care Teams Bookkeeping Machine Operator Relationship Specialty Start Date End Date Juma Miranda MD PCP - General FAMILY PRACTICE 07/25/18 Maribell Adler MD CARDIOVASCULAR DISEASE 07/14/16 Juma Schneider MD [address] [place] [phone] EP Process Supervisor CLINICAL CARDIAC ELECTROPHYSIOLOGY 03/23/19 documented as of this encounter
--- OUTSIDE RECORDS SUMMARY | 2024-11-25 13:10 | XMS_ITS | Clinical Summary ---
Author Organization [facility] [address] Address [address] [place] [address] Care Team Providers Care Application Development Project Manager Name Role Phone Juma Miranda MD Primary Care Provider [phone] Allergies Active Allergy Reactions Criticality Noted Date [...] Department Care Team Description 11/24/2024 Results Follow-Up [facility] Medical Group [facility] at [address] [phone] Yuni Marrero NP Urine culture Urine, clean voided 11/22/2024 2:15 PM CDT Office Visit [facility] Medical [facility] at [address] [address] Lucille Valdez NP Dysuria (Primary Dx) 11/22/2024 2:13 PM CDT - 11/22/2024 11:59 PM CDT Hospital Encounter [address] [address] Dysuria Discharge Disposition: Discharge to home or self care 09/11/2024 12:30 PM CDT Office Visit [facility] Medical [facility] at [address] [address] Fabian Sebastian NP Blepharitis of [...] Negative Ketones, ur, POC Negative Negative Specific [place], POC 1.010 1.003 - 1.030 Blood, ur, [...] Klebsiella pneumoniae (.) Comment:Testing performed by : [facility], [address] [facility] [place]., [address] Organism KLEBSIELLA PNEUMONIAE [place] Urine, clean voided 11/22/2024 2:13 PM CDT 11/23/2024 12:28 AM CDT Narrative [place] - 11/24/2024 2:52 PM CDT Testing performed by [facility] Microbiology Laboratory ([phone]) Organism Antibiotic Method Susceptibility Klebsiella pneumoniae Ampicillin [...] - [place] [address] [address] Department [place] [address] from Last 3 Months Insurance MEDICARE [employer] [place] [employer] [place] [employer] Care Teams Application Development Project Manager Relationship Specialty [place] [address] [place] [address] PCP - General Family Medicine 09/11/24
--- OUTSIDE RECORDS SUMMARY | 2024-11-25 13:10 | XMS_ITS | Encounter Summary ---
Author Organization [facility] Healthcare Address [address] [place] [address] Care Team Providers Care Aquatic Facility Manager Name Role Phone No, Physician Primary Care Provider [phone] Juma Miranda MD Primary Care Provider [phone] Encounter Details Date Type Department Care Team (Late st Contact Info) Description 03/20/2024 Orders Only [facility] Medical Group [facility] [address] [place] [address] Scanning, Provider Social History Tobacco Use [...] on filedocumented in this encounter Care Teams Aquatic Facility Manager Relationship Specialty Start Date End Date No, Physician PCP - General 03/18/19 09/10/24 [place] [address] [place] [address] PCP - General Family Medicine 09/11/24 documented as of this encounter
--- OUTSIDE RECORDS SUMMARY | 2024-11-25 13:10 | XMS_ITS | Clinical Summary ---
Author Organization [facility] Address [address] [place] [address] Care Team Providers Care Insole Coverer Name Role Phone Juma Miranda MD Primary Care Provider [phone] Juma Schneider MD Unavailable [phone] Allergies Active Allergy Reactions Criticality Noted [...] zoie confirm ilr -- 07-13-2019 Cryptogenic stroke ([facility]) 04/06/2019 Bilateral carotid artery stenosis 07/20/2018 Other chest pain 01/19/2018 Nonrheumatic aortic valve insufficiency 06/24/19 17 Abnormal laboratory test 06/23/2016 Heart murmur Pulsatile neck mass HLD (hyperlipidemia) Aneurysm of carotid artery IBS (irritable bowel syndrome) Family History Medical History Relation Comments Heart Attack Father [place] Father Heart Attack Paternal Grandfather Relation Status [...] Comments Blood Pressure 143/86 07/30/2022 1:00 PM AERODYNAMICS ENGINEER Pulse 76 07/30/2022 1:00 PM AERODYNAMICS ENGINEER Temperature 36 C (96.8 F) 07/30/2022 1:00 PM AERODYNAMICS ENGINEER Respiratory Rate 16 07/30/2022 1:00 PM AERODYNAMICS ENGINEER Oxygen Saturation 97% 07/30/2022 1:00 PM AERODYNAMICS ENGINEER Inhaled Oxygen Concentration - - Weight 84.1 kg (185 lb 6.5 oz) 07/30/2022 1:00 P M AERODYNAMICS ENGINEER Height 161.3 cm (5' 3.5) 07/30/2022 1:00 PM AERODYNAMICS ENGINEER Body Mass Index 32.32 07/30/2022 1:00 PM AERODYNAMICS ENGINEER Plan of Treatment Health Maintenance Due Date [...] this topic Medical Devices Implanted Type Area General Assignment Reporter Device Identifier Shelf Expiration Date Model / Serial / Lot St Zoie Loop Recorder 07/13/2019 Implanted:07/13 by Juma Schneider MD (Quantity not on file) [facility] [employer] [facility] [facility] - DIV [employer] 07/13/2020 [id number] / [id number] / Insurance MEDICARE [email or web address] Advance Directives Documents on File Type Date Recorded Patient System Developer Associate Manager Expl anation Advance Directives and Living Will 08/03/2022 3:25 PM 04/29/2020 [place] Advance Directives and Living Will 08/03/2022 2:39 PM POA FOR HEALTH CARE * Full Code (Latest Code Status on File) Date Activated Date Inactivated Comments 07/13/2019 1:03 PM 07/13/2019 3:46 PM Care Teams Insole Coverer Relationship Specialty Start Date End Date Juma Miranda MD PCP - General FAMILY PRACTICE 07/25/18 Juma Schneider MD [address] [place] [address] EP Lumber Loader CLINICAL CARDIAC ELECTROPHYSIOLOGY 03/23/19
--- OUTSIDE RECORDS SUMMARY | 2024-11-25 13:10 | XMS_ITS | Referral Summary ---
Author Organization [facility] [address] Address [address] [place] [address] Care Team Providers Care Real Estate Intern Name Role Phone Juma Miranda MD Primary Care Provider [phone] Encounters Date Type Department Care Team Description 11/24/2024 Results Follow-Up [facility] Medical Group Convenient Care at [address] [phone] Yuni Marrero NP Urine culture Urine, clean voided 11/22/2024 2:13 PM CDT - 11/22/2024 11:59 PM CD[place] [address] Dysuria Discharge Disposition: Discharge to home or self care 11/22/2024 2:15 PM CDT Office Visit [facility] Medical Group Con[facility]ient Care at [address] [address] Lucille Valdez NP Dysuria (Primary Dx) 09/11/2024 12:30 PM CDT Office Visit [facility] Medical [facility] Convenient Care at [address] [address] Fabian Sebastian NP Blepharitis of [...] Negative Ketones, ur, POC Negative Negative Specific [place], POC 1.010 1.003 - 1.030 Blood, ur, [...] Klebsiella pneumoniae (.) Comment:Testing performed by : [facility], [address] [place]., [address] Organism KLEBSIELLA PNEUMONIAE [place] Urine, clean voided 11/22/2024 2:13 PM CDT 11/23/2024 12:28 AM CDT Narrative [place] JEFF - 11/24/2024 2:52 PM CDT Testing performed by [facility] Microbiology Laboratory ([phone]) Organism Antibiotic Method Susceptibility Klebsiella pneumoniae Ampicillin [...] - GENERAL ORDERABLES [place] [address] [address] Department of [place] [address] from Last 3 Months Insurance MEDICARE [employer] [place] [employer] [place] [employer] Care Teams Real Estate Intern Relationship Specialty [place] [address] [place] [address] PCP - General Family Medicine 09/11/24
--- OUTSIDE RECORDS SUMMARY | 2024-11-25 13:10 | XMS_ITS | Encounter Summary ---
Author Organization [facility] Healthcare Address [facility] [place] [address] Care Team Providers Care Tattoo Designer Name Role Phone Juma Miranda MD Primary Care Provider [phone] Encounter Details Date Type Department Care Team (Late st Contact Info) Description 11/24/2024 Results Follow-Up [facility] Medical Group Con[facility]ient Care at [address] [address] Yuni Marrero NP [address] [place] [place] [address] [address] [place] [address] Urine culture Urine, clean voided [...] on filedocumented in this encounter Care Teams Tattoo Designer Relationship Specialty [place] [address] [place] [address] PCP - General Family Medicine 09/11/24 documented as of this encounter
[2024-11-25 13:24] LABS: Magnesium 1.9 mg/dL (1.6-2.3)
[2024-11-25 13:55] VITALS: BP 124/71; PULSE 63; RESP 14; O2SAT 96
[2024-11-25] MEDS: SODIUM CHLORIDE 0.9% IV 1,000 ML 999 ML IV CONT (13:55)
--- NOTE | 2024-11-25 14:12 | ED.GENADULT ---
HPI - General Adult General Chief complaint: Weakness Stated complaint: weakness Time Seen by Provider: 11/25/24 12:55 History of Present Illness HPI narrative: Patient 79-year-old female presents emergency department chief complaint of body cramping patient also reports she has felt lightheaded and reports she is being treated for UTI the patient states she is currently on antibiotic and reports that she has had 2 rounds of the antibiotic without relief patient reports that she feels run down Related Data Home Medications ?Medication ?Instructions ?Recorded ?Confirmed ?Last Taken ?Type amitriptyline 50 mg tablet 50 mg PO ONCE 02/28/20 06/15/24 01/15/21 History atorvastatin 10 mg tablet 10 mg PO DAILY 02/28/20 06/15/24 01/15/21 History cholecalciferol (vitamin D3) 125 125 mcg PO DAILY 02/28/20 06/15/24 01/15/21 History mcg (5,000 unit) capsule mecobalamin (vitamin B12) 1,000 1,000 mcg sublingual DAILY 02/28/20 06/15/24 01/15/21 History mcg disintegrating tablet,sublingual pantoprazole 20 mg tablet,delayed 20 mg PO BID 02/28/20 06/15/24 01/15/21 History release ropinirole 0.5 mg tablet 0.5 mg PO BID 02/28/20 06/15/24 01/15/21 History metformin 1,000 mg tablet 1,000 mg PO DAILY 06/15/24 06/15/24 Unknown History semaglutide 0.25 mg or 0.5 mg (2 0.25 mg subcut WEEKLY 06/15/24 06/15/24 Unknown History mg/3 mL) subcutaneous pen injector (Ozempic) Allergies Allergy/AdvReac Type Severity Reaction Status Date / Time amoxicillin Allergy Unknown Rash Verified 11/25/24 15:18 Penicillins Allergy Unknown Rash Verified 11/25/24 15:18 Sulfa (Sulfonamide Allergy Unknown RASH Verified 11/25/24 15:18 Antibiotics) codeine AdvReac Unknown Nausea and Verified 11/25/24 15:18 Vomiting morphine AdvReac Unknown Nausea and Verified 11/25/24 15:18 Vomiting Review of Systems Review of Systems: A 10 system review of systems was completed on the patient and is negative except for what is stated in the HPI. Nursing and ancillary documentation was reviewed. [facility] Past Medical History Medical History Diabetes Esophageal dilatation 2019 CVA (cerebral vascular accident) 2019 no residual Hypertension Dysphagia Hypercholesteremia Family history of malignant neoplasm of colon Diverticulosis Family history of colon cancer in mother History of colon polyps Surgical History Surgical History Hx of appendectomy Social History Social History Smoking status: Never smoker Substance use: never Living arrangements: with family Gender identity (if verbalized by the patient): Female Spiritual care concerns: No Exam Narrative: GENERAL: Well-appearing, well-nourished, and in no acute distress. HEAD: Normocephalic, atraumatic. EYES: PERRLA and EOMI. ENT: Nares clear, no rhinorrhea or epistaxis. Mucous membranes moist. NECK: Supple. CHEST: Clear to auscultation. No respiratory distress. HEART: Regular rate and rhythm. No murmur heard. Normal peripheral pulses. ABDOMEN: Soft, nontender, nondistended, normal active bowel sounds. EXTREMITIES: Normal range of motion. No edema. SKIN: Warm, dry, no rash. NEURO: No focal deficits. Alert and oriented x3. PSYCH: Normal mood and affect. Course Vital Signs Vital signs: Vital Signs Temperature 36.6 C 11/25/24 11:24 Pulse Rate 78 11/25/24 11:24 Respiratory Rate 16 11/25/24 11:24 Blood Pressure 129/62 11/25/24 11:24 Pulse Oximetry 96 11/25/24 11:24 Oxygen Delivery Room Air 11/25/24 11:24 Temperature 36.6 C 11/25/24 11:24 Pulse Rate 63 11/25/24 13:55 Respiratory Rate 14 11/25/24 13:55 Blood Pressure 124/71 11/25/24 13:55 Pulse Oximetry 96 11/25/24 13:55 Oxygen Delivery Room Air 11/25/24 11:24 Medical Decision Making MDM Narrative Medical decision making narrative: Differential diagnosis includes electrolyte abnormality UTI, sepsis, Laboratory studies showed a urinary tract infection 21-50 white blood cells 1+ leukocyte esterase electrolytes are within normal limits magnesium was 1.9 CT head was obtained that showed no acute abnormality Chest x-ray showed a plate like atelectasis The patient was ambulated in the emergency department was requiring 1 person assist ambulate the patient normally does not require any kind of assist device to walk In discussion with the hospitalist that I feel is a the patient meets criteria to stay in the hospital in discussion with the family and the patient she does report that she is feeling a little better and would like to try outpatient management at this time Vital Signs Vital Signs: Vital Signs Temperature 36.6 C 11/25/24 11:24 Pulse Rate 78 11/25/24 11:24 Respiratory Rate 16 11/25/24 11:24 Blood Pressure 129/62 11/25/24 11:24 Pulse Oximetry 96 11/25/24 11:24 Oxygen Delivery Room Air 11/25/24 11:24 Temperature 36.6 C 11/25/24 11:24 Pulse Rate 63 11/25/24 13:55 Respiratory Rate 14 11/25/24 13:55 Blood Pressure 124/71 11/25/24 13:55 Pulse Oximetry 96 11/25/24 13:55 Oxygen Delivery Room Air 11/25/24 11:24 Lab Data 11/25/24 11:46 11/25/24 11:46 Labs: Lab Results 11/25/24 11/25/24 Range/Units 11:46 11:58 WBC 6.4 (4.5-10.0) K/mm3 RBC 4.53 (4.2-5.4) M/mm3 Hgb 13.6 (12.0-15.0) g/dL Hct 41.9 (37.0-47.0) % MCV 92.5 (80-100) fl MCH 30.0 (26-34) pg MCHC 32.5 (32-36) g/dl RDW 14.7 H (11.5-14.5) % Plt Count 250 (150-375) k/mm3 MPV 9.8 (7.4-10.4) fl Immature Gran % (Auto) 0.2 (0-0.5) % Neut % (Auto) 59.3 (45.5-73.1) % Lymph % (Auto) 26.8 (18.3-44.2) % [place] % (Auto) 9.0 H (2.6-8.5) % Eos % (Auto) 4.1 (0-4.4) % Baso % (Auto) 0.6 (0.2-1.2) % Lymph # (Auto) 1.72 (0.9-3.2) K/mm3 [place] # (Auto) 0.6 (0.1-0.6) K/mm3 Eos # (Auto) 0.3 (0-0.3) K/mm3 Baso # (Auto) 0.0 (0.0-0.1) K/mm3 Abs Immat Gran (auto) 0.01 (0.00-0.031) K/mm3 Absolute Neuts (auto) 3.8 (1.3-6.7) K/mm3 Absolute Nucleated RBC 0.000 (0.0-0.012) K/mm3 Nucleated RBC % 0.0 (0.0-0.2) % Sodium 138 (137-145) mmol/L Potassium 3.9 (3.4-5.0) mmol/L Chloride 109 H (98-107) mmol/L Carbon Dioxide 23 (22-30) mmol/L Anion Gap 6 (4-12) mmol/L BUN 15 (7-17) mg/dL Creatinine 0.85 (0.7-1.0) mg/dL Estim Creat Clear Calc Not Reportable Estimated GFR > 60 (59 - ) Glucose 110 (65-110) mg/dL Calcium 10.1 (8.4-10.2) mg/dL Magnesium 1.9 (1.6-2.3) mg/dL Total Bilirubin 0.6 (0.2-1.3) mg/dL AST 30 (14-36) U/L ALT 22 (6-35) U/L Alkaline Phosphatase 88 (38-126) U/L Total Protein 7.2 (6.3-8.2) g/dL Albumin 3.8 (3.5-5.1) g/dL Urine Color Yellow (Yellow) Urine Appearance Clear (Clear) Urine pH 5.5 (5.0-9.0) Ur Specific [place] 1.010 (1.001-1.035) Urine Protein Negative (Negative) mg/dL Urine Glucose (UA) 3+ H (Negative) mg/dL Urine Ketones Negative (Negative) mg/dL Ur Blood (Man) Negative (Negative) Urine Nitrate Negative (Negative) Urine Bilirubin Negative (Negative) Urine Urobilinogen 0.2 (<2.0) mg/dL Add Ur Microanalysis Reviewed Leukocyte Esterase Rfl 1+ H (Negative) JOAO/UL Urine RBC 0-2 (0-2) /hpf Urine WBC 21-50 H (0-3) /hpf Ur Squamous Epith Cells None seen (Few) /hpf Urine Bacteria None seen /hpf Urine Casts 0-2 Discharge Plan Discharge Clinical Impression: Acute UTI, Generalized weakness Patient Disposition: Home Condition: Stable Instructions: Antibiotic Form, Urinary Tract Infection in Women (ED), Weakness (ED) Patient Language: [place] Prescriptions: New cefdinir 300 mg capsule 300 mg PO Q12H 10 Days Qty: 20 0RF No Action prednisone 20 mg tablet 20 mg PO DAILY Qty: 5 0RF valacyclovir [Valtrex] 1 gram tablet 1,000 mg PO Q8H Qty: 21 0RF atorvastatin 10 mg tablet 10 mg PO DAILY pantoprazole 20 mg tablet,delayed release (DR/EC) 20 mg PO BID amitriptyline 50 mg tablet 50 mg PO ONCE ropinirole 0.5 mg tablet 0.5 mg PO BID cholecalciferol (vitamin D3) 125 mcg (5,000 unit) capsule 125 mcg PO DAILY mecobalamin (vitamin B12) 1,000 mcg tablet,disintegrating 1,000 mcg sublingual DAILY Rx Instructions: place tablet under tongue and allow to dissolve for at least30 secs before swallowing Ozempic 0.25 mg or 0.5 mg (2 mg/3 mL) pen injector 0.25 mg subcut WEEKLY Rx Instructions: for 4 weeks metformin 1,000 mg tablet 1,000 mg PO DAILY meclizine 25 mg tablet 25 mg PO TID PRN (Reason: dizziness) Qty: 20 0RF cefuroxime axetil 500 mg tablet 500 mg PO BID Qty: 14 0RF ondansetron 4 mg tablet,disintegrating 4 mg PO Q6H PRN (Reason: nausea and vomiting) Qty: 10 0RF Follow-up/Referrals: Ruth,Juma Mcleod MD [Primary Care Provider] - Time of Disposition: 15:52
[2024-11-25] MEDS: MAGNESIUM SULF 1 GM/D5W 100 ML 1 GM/100 ML BAG IVPB (14:20)
[2024-11-25 16:00] VITALS: BP 116/74; PULSE 72; RESP 16; O2SAT 96
--- NOTE | 2024-11-25 16:08 | PC.NURSE ---
Pt. able to ambulate to bathroom independently, but walked to bathroom by this RN. Pt. states she has a walker at home to use.
== END 2024-11-25 16:28 | disposition home or self-care (01) ==
PROVIDERS: Emergency Medicine; Emergency Provider Emergency Medicine; PCP Family Medicine
DX: N39.0 Urinary tract infection, site not specified (principal); R53.1 Weakness; E11.9 Type 2 diabetes mellitus without complications; I10 Essential (primary) hypertension; E78.00 Pure hypercholesterolemia, unspecified
CPT/HCPCS: 36415; 70450; 71046; 80053; 81001; 83735; 85025; 87086; 87186; 93005; 96361; 96365; 96368; 99284; J0696; J3475; J7030